=== PATIENT | female | born 1945 | race Caucasian/White ===

== ENCOUNTER → 2016-11-07 | Outpatient (CLI) | payer MEDICARE, BC ==
--- NOTE | 2016-11-07 18:03 | REP ---
MRI BRAIN WITHOUT AND WITH CONTRAST: HISTORY: Headaches. Areas of increased signal intensity on T2 weighted images are present in the periventricular and subcortical white matter. This represents small vessel ischemic disease. There is no intraparenchymal hemorrhage, infarct mass or midline shift. There is no abnormal enhancement. The ventricular system and cortical sulci are dilated consistent with mild volume loss. There is no extracerebral collection. The sinuses are clear. IMPRESSION: 1. Small vessel ischemic disease. 2. Mild volume loss. Signed by Rupert Saenz MD 11/07/2016 06:11 P
== END ==
LOC: M RAD 16:34
PROVIDERS: ATTEND Internal Medicine
DX: R51 Headache (principal); Z85.43 Personal history of malignant neoplasm of ovary; Z85.51 Personal history of malignant neoplasm of bladder
CPT/HCPCS: 70553; A9576

== ENCOUNTER → 2016-12-02 | Outpatient (REF) | payer MEDICARE, BC | LOC: M LAB REF 15:04 | PROVIDERS: ATTEND Internal Medicine | DX: C56.9 Malignant neoplasm of unspecified ovary (principal) ==

== ENCOUNTER → 2016-12-05 | Outpatient (CLI) | payer MEDICARE, BC ==
[~2016-12-05] MED LIST: ISOVUE-370 76% 100ML VIAL (Q9967) As Ordered ONE
--- NOTE | 2016-12-05 12:51 | REP ---
CT study of the chest with IV contrast: History: Ovarian cancer. Comparison to prior studies. The most recent comparison prior CT study is dated June 09, 2016. The most remote study is reviewed from June 06, 2014. These studies have shown waxing and waning pulmonary nodules in the left lower lobe and left upper lobe. CT contrast dose: 75 ml of Isovue [address] findings: On today's examination, there is a 6 mm spiculated noncalcified pulmonary nodule in the anterior segment of the left upper lobe on image number 45 of 102 in series 201 of today's examination. This appears a little larger than on the most recent prior study of June 2016. This nodule was a little smaller than on January 06, 2016. There is also a nodular opacity in the left lower lobe at the base somewhat anteriorly, which is seen on image numbers 56 through 59 of 102 in series 201 of today's exam. This nodular opacity has develop some calcification and has regressed. It appears improved. There is a stable, 6 mm noncalcified nodule in the left lower lobe adjacent to the hilar vessels centrally on image number 45 of 102 of today's examination. This has not changed. There is a tiny 3 mm pleural-based nodular opacity in the left upper lobe today. No hilar or mediastinal mass or adenopathy is observed. There is a small sliding-type hiatal hernia. No adrenal lesion is seen. A 6 mm hypodensity is seen in the right lobe of the liver, which is unchanged from June 2014. Also again noted is a small subpectoral right anterior chest wall lipoma measuring 3.7 cm in greatest diameter. This too is unchanged. Impression: Waxing and waning pulmonary nodules. On today's examination, there is enlargement in the spiculated nodule in the left upper lobe, now 6 mm in diameter. There is a nodule in the left lower lobe, which has regressed since the prior study and another in the left lower lobe, which is unchanged over multiple prior exams. Signed by Dinesh Ovalle MD 12/05/2016 02:31 P
== END ==
LOC: M RAD 10:32
PROVIDERS: ATTEND Internal Medicine Medical Oncology
DX: C56.9 Malignant neoplasm of unspecified ovary (principal)
CPT/HCPCS: 71260; Q9967

== ENCOUNTER → 2017-01-27 | Outpatient (REF) | payer MEDICARE, BC | LOC: M LAB REF 13:20 | PROVIDERS: ATTEND Internal Medicine | DX: I48.2 Chronic atrial fibrillation (principal) ==

== ENCOUNTER → 2017-05-31 | Outpatient (REF) | payer MEDICARE, BC | LOC: M LAB REF 13:55 | PROVIDERS: ATTEND Internal Medicine | DX: C56.9 Malignant neoplasm of unspecified ovary (principal) ==

== ENCOUNTER → 2017-06-07 | Outpatient (CLI) | payer MEDICARE, BC ==
[~2017-06-07] MED LIST changes: +GASTROGRAFIN SOLUTION 30ML (Q9963) As Ordered ONE
--- NOTE | 2017-06-07 11:56 | REP ---
Clinical: Ovarian cancer for follow up. Technique: Axial contrast enhanced images from the lung bases to the pubic symphysis using oral and 100 ml Isovue 370 intravenous contrast material with precontrast and delayed images of the abdomen as well as coronal and sagittal re-formations. Comparison: 06/06/2014, 01/06/2016. Findings: Lung bases are relatively well aerated and clear. Visualized portions of the heart and pericardium are stable and grossly within normal limits. Liver, spleen, pancreas, bilateral adrenal glands and kidneys are normal. The patient is status post cholecystectomy. The enteric system is without obstruction or acute inflammatory process. Colonic and sigmoid diverticulosis noted without evidence for acute diverticulitis. Areas of partial resection and anastomoses are identified in the right lower quadrant and mid pelvis. Area of anastomosis in the mid pelvis appears less distended than on prior examinations but includes central areas of low density as well as subtle high-density and possible calcified material which may reflect chronic retained intraluminal contents and less likely reflect abnormal mass (images 105 - 120). Pelvis demonstrates normal bladder and evidence for prior hysterectomy. No ascites. No intraperitoneal or retroperitoneal adenopathy. No focal mass lesion. Atherosclerotic changes of the aorta and vasculature noted without aneurysm or dissection. Musculoskeletal structures demonstrate age-related degenerative changes without focal osseous abnormality. Impression: 1. No obvious significant abdominopelvic pathology appreciated. Specifically, no ascites, adenopathy or definite mass lesion. 2. Area of small bowel anastomoses in the mid pelvis is less distended than prior examinations but contains central low density and presumed calcified structures which may reflect chronic residual intraluminal contents and less likely reflect true mass lesion. Follow-up examination using water as negative contrast agent or small bowel follow-through may be of value for further investigation. 3. Chronic stable changes include diverticulosis without acute diverticulitis, atherosclerotic changes to the vasculature, and degenerative changes the musculoskeletal structures. Signed by Jamey Solis MD 06/07/2017 11:47 A
--- NOTE | 2017-06-07 13:18 | REP ---
CT CHEST WITH IV CONTRAST: HISTORY: Ovarian carcinoma. Question metastatic disease or recurrence. Comparison chest CT study December 05, 2016. CT CONTRAST DOSE: 100 mL of Isovue [address] FINDINGS: There is no change in the size or appearance of the 6 mm left perihilar nodule in the left lower lobe. This seen on image number 41 of 100 in series 3 of 4 of today's examination. There is a somewhat spiculated irregular nodule 5 mm in diameter on the current study in the left upper lobe on page 43 of 100 of today's examination. This appears slightly smaller. It has not progressed. A tiny partially calcified nodular density is seen in the left lower lobe on page 54 unchanged. No other pulmonary nodule is visible today. The previously noted left upper lobe subpleural nodule is not apparent today. Scattered normal-sized mediastinal lymph nodes are seen stable since the prior study. No vascular abnormality is seen. A hiatal hernia is again noted. There is a small lipoma under the distal edge of the right pectoralis muscle unchanged. No pleural effusion is seen. Vascular calcification is again noted including the coronary artery distribution. No bony destructive lesion is appreciated. IMPRESSION: 1. Small hiatal hernia. 2. Stable normal-sized mediastinal lymph nodes. 3. Stable small left lung pulmonary nodules. No new pulmonary nodules seen. Signed by Dinesh Ovalle MD 06/07/2017 06:33 P
== END ==
LOC: M RAD 09:06
PROVIDERS: ATTEND Internal Medicine Medical Oncology
DX: Z08 Encounter for follow-up examination after completed treatment for malignant neoplasm (principal); K57.30 Diverticulosis of large intestine without perforation or abscess without bleeding; M19.90 Unspecified osteoarthritis, unspecified site; Z85.43 Personal history of malignant neoplasm of ovary
CPT/HCPCS: 71260; 74178; Q9963; Q9967

== ENCOUNTER → 2017-12-14 | Outpatient (REF) | payer MEDICARE, BC ==
[2017-12-15 11:14] LABS: CA 125 5.3 U/ML (<30.2)
== END ==
LOC: M LAB REF 14:56
DX: C56.9 Malignant neoplasm of unspecified ovary (principal)
CPT/HCPCS: 86304

== ENCOUNTER → 2018-06-07 | Outpatient (REF) | payer MEDICARE, BC | LOC: M LAB REF 17:22 | DX: C56.9 Malignant neoplasm of unspecified ovary (principal) | CPT/HCPCS: 86304 ==

== ENCOUNTER → 2018-06-11 | Outpatient (CLI) | payer MEDICARE, BC ==
[~2018-06-11] MED LIST changes: -GASTROGRAFIN SOLUTION 30ML (Q9963) As Ordered ONE; +ISOVUE-370 76% 100ML VIAL (Q9967) As Ordered; -ISOVUE-370 76% 100ML VIAL (Q9967) As Ordered ONE
== END ==
LOC: M RAD 09:33
DX: R91.1 Solitary pulmonary nodule (principal); Z87.891 Personal history of nicotine dependence

== ENCOUNTER → 2018-06-18 | Outpatient (CLI) | payer MEDICARE, BC | LOC: M RAD 07:59 | DX: R91.1 Solitary pulmonary nodule (principal); Z87.891 Personal history of nicotine dependence; K76.89 Other specified diseases of liver | CPT/HCPCS: Q9967 ==

== ENCOUNTER → 2018-07-19 | Outpatient (CLI) | payer MEDICARE, BC ==
[~2018-07-19] MED LIST changes: +GASTROGRAFIN SOLUTION 30ML (Q9963) As Ordered
== END ==
LOC: M RAD 11:30
DX: C56.9 Malignant neoplasm of unspecified ovary (principal); C78.00 Secondary malignant neoplasm of unspecified lung
CPT/HCPCS: Q9963

== ENCOUNTER → 2018-07-24 | Outpatient (CLI) | payer MEDICARE, BC | LOC: M PLARAD 11:23 | DX: C56.1 Malignant neoplasm of right ovary (principal); C78.02 Secondary malignant neoplasm of left lung | CPT/HCPCS: 78815 ==

== ENCOUNTER → 2018-08-13 | Outpatient (CLI) | payer MEDICARE, BC ==
[~2018-08-13] MED LIST changes: -GASTROGRAFIN SOLUTION 30ML (Q9963) As Ordered; -ISOVUE-370 76% 100ML VIAL (Q9967) As Ordered; +PROHANCE 279.3MG/ML 15ML VIAL (A9576) As Ordered
== END ==
LOC: M RAD 13:31
DX: R90.82 White matter disease, unspecified (principal); Z85.43 Personal history of malignant neoplasm of ovary
CPT/HCPCS: A9576

== ENCOUNTER → 2018-08-21 | Outpatient (REF) | payer MEDICARE, BC | LOC: M LAB REF 17:17 | DX: N76.0 Acute vaginitis (principal) | CPT/HCPCS: 87205 ==

== ENCOUNTER → 2018-11-22 | Outpatient (REF) | payer MEDICARE, BC ==
[~2018-11-22] MED LIST changes: +ATEN50TA2 PO; +CALC600T31 PO; +CALC750T PO; +CENTCHW3 PO; +CITRTAB19 PO; +ELIQ5TAB PO; +GLIP-163 PO; +LISI-538 PO; +MAGN250T7 PO; +MAGO400T PO; +METF10004 PO; +PROBCAP14 PO; -PROHANCE 279.3MG/ML 15ML VIAL (A9576) As Ordered; +RANI1SYP PO; +SIMV20TA2 PO; +SPIR-10 PO; +VITA500T3 PO
== END ==
LOC: M LAB REF 11:56
PROVIDERS: ATTEND Nurse Practitioner Family
DX: J02.9 Acute pharyngitis, unspecified (principal)

== ENCOUNTER → 2018-11-23 | Outpatient (REF) | payer MEDICARE, BC | LOC: M LAB REF 09:58 | PROVIDERS: ATTEND Nurse Practitioner Adult Health | DX: D48.5 Neoplasm of uncertain behavior of skin (principal) ==

== ENCOUNTER → 2018-12-18 | Outpatient (REF) | payer MEDICARE, BC ==
[2018-12-18 19:20] LABS: C REACTIVE PROTEIN QUANTITATIV < 0.30 MG/DL (0.00-0.30); RHEUMATOID FACTOR QUANT < 10.0 IU/ML (<15.0)
[2018-12-20 14:12] LABS: ANTINUCLEAR ANTIBODIES DIRECT Negative (Negative)
[2018-12-21 00:08] LABS: CYCLIC CITRULLINATED PEPTIDE 4 units (0-19)
== END ==
LOC: M LAB REF 17:39
PROVIDERS: ATTEND Internal Medicine
DX: M25.50 Pain in unspecified joint (principal); M79.10 Myalgia, unspecified site

== ENCOUNTER 2019-02-22 11:25 | Inpatient (IN) | payer MEDICARE, BC ==
[~2019-02-22] VITALS: Ht 154.9 cm; Wt 73.0 kg
[2019-02-22 05:30] VITALS: BP 136/88
[2019-02-22] MEDS ORDERED: L-LY500T9 PO (12:06)
[2019-02-22] MEDS ORDERED: FOLTTAB9 PO (12:06)
[2019-02-22] MEDS ORDERED: OXYC15TA76 PO ×2 (12:06)
[2019-02-22] MEDS ORDERED: META28.32 PO (12:06)
[2019-02-22] MEDS ORDERED: NS 1,000 ML IV SCH ×3 (12:15→17:30)
[2019-02-22 13:03] LABS: BASO # 0.1 10^3/uL (0.0-0.2); BASO % 0.4 % (0.0-1.0); EOS % 0.2 % (0.0-3.0); HEMATOCRIT 39.8 % (36.0-47.0); HEMOGLOBIN 13.6 g/dl (12.0-15.5); LYMPH # 1.7 10^3/uL (1.5-4.5); LYMPH % 12.6 % (24.0-44.0); MEAN CORPUSCULAR HEMOGLOBIN 28.9 pg (27.0-33.0); MEAN CORPUSCULAR HGB CONC 34.2 g/dl (32.0-36.5); MEAN CORPUSCULAR VOLUME 84.5 fl (80.0-96.0); MONO # 1.3 10^3/uL (0.0-0.8); MONO % 9.6 % (0.0-5.0); NEUTROPHILS # 10.3 10^3/uL (1.8-7.7); NEUTROPHILS % 76.5 % (36.0-66.0); PLATELET COUNT, AUTOMATED 500 10^3/uL (150-450); RED BLOOD COUNT 4.71 10^6/uL (4.00-5.40); WHITE BLOOD COUNT 13.4 10^3/uL (4.0-10.0)
[2019-02-22 13:13] LABS: INR 1.59; PROTHROMBIN TIME 19.2 SECONDS (12.1-14.4)
[2019-02-22 13:14] LABS: PARTIAL THROMBOPLASTIN TIME 35.6 SECONDS (25.4-37.6)
[2019-02-22 13:24] LABS: BLOOD UREA NITROGEN 8 MG/DL (7-18); CALCIUM LEVEL 10.6 MG/DL (8.8-10.2); CARBON DIOXIDE LEVEL 30 MEQ/L (21-32); CHLORIDE LEVEL 90 MEQ/L (98-107); CREATININE FOR GFR 0.69 MG/DL (0.55-1.30); GLOMERULAR FILTRATION RATE > 60.0 (>39); GLUCOSE, FASTING 176 MG/DL (70-100); MAGNESIUM LEVEL 1.7 MG/DL (1.8-2.4); POTASSIUM SERUM 4.8 MEQ/L (3.5-5.1); SODIUM LEVEL 127 MEQ/L (136-145)
[2019-02-22 13:29] LABS: CPK CREATINE PHOSPHOKINASE 28 U/L (26-192); MB/CK RELATIVE INDEX 5.36 (< OR =4)
[2019-02-22] MEDS ORDERED: ISOVUE-370 76% 100ML VIAL (Q9967) As Ordered ONE (13:30)
[2019-02-22 13:34] LABS: FREE T4 1.39 NG/DL (0.76-1.46); THYROID STIMULATING HORMONE 4.14 uIU/ML (0.358-3.740)
[2019-02-22 13:52] LABS: TROPONIN I < 0.02 NG/ML (< 0.10)
[2019-02-22 14:21] LABS: CREATININE,RANDOM URINE 27.1 MG/DL
[2019-02-22] MEDS ORDERED: MAG SULF 1GM/100ML (MAG RUN) 1 GM in APPROPRIATE DILUENT 1 EA IV ONE (14:45)
[2019-02-22] MEDS ORDERED: RANI150T14 PO (15:11)
[2019-02-22] MEDS ORDERED: OXYC-403 PO (15:11)
[2019-02-22] MEDS ORDERED: ROSU5TAB4 PO (15:11)
[2019-02-22] MEDS ORDERED: CITRTAB10 PO (15:11)
[2019-02-22] MEDS ORDERED: OXYC-517 PO (15:11)
[2019-02-22] MEDS ORDERED: ACET-683 PO (15:11)
[2019-02-22] MEDS ORDERED: VITA100014 PO (15:11)
[2019-02-22] MEDS ORDERED: CENT1TAB PO (15:11)
[2019-02-22] MEDS ORDERED: ACETAMINOPHEN TAB 650MG DOSE (2X325MG) PO PRN (15:30)
[2019-02-22] MEDS ORDERED: MOM 30ML SUSPENSION UDC PO PRN (15:30)
[2019-02-22] MEDS ORDERED: AQUAPHOR **100GM** OINT TOP SCH (15:45)
[2019-02-22] MEDS ORDERED: GLUCAGON FOR INJ 1 MG VIAL (J1610) SC PRN (15:45)
[2019-02-22] MEDS ORDERED: GLUCOSE 4 GM CHEW TABLET PO PRN (15:45)
[2019-02-22] MEDS ORDERED: DEXTROSE 50% 50 ML SYRINGE IV PRN (15:45)
--- NOTE | 2019-02-22 15:56 | HPEPDOC ---
General Date of Admission February 22, 2019 at 15:09 Date of Service: February 22, 2019 Chief Complaint The patient is a 73-year-old female who was sent to the ER for hyponatremia Source: Patient Exam Limitations: Clinical conditions (Pt mood vs clinical condition), Other Severity: Mild, Moderate History of Present Illness Pt is a 73 yo female with PMH of ovarian cancer s/p chemo in 2010, melanoma in back s/p resection in 2011, adenocarcinoma of lung diagnosed in Sep 2018 s/p resection on chemo now, A. fib on eliquis, HTN, and DM presented to [facility] ER after her primary care told her yesterday that she has hyponatremia of 121. She is on chemotherapy for her adenocarcinoma and reported last blood work was done a week or two ago. Limited info was able to be obtained; pt seems frustrated that she was recently told as outpatient her lung malignancy metastasize to the liver and possibly other organs in the abdomen on her CT scan. She reported no electrolyte abnormalities that she was aware of prior. Denies any symptoms except for LUQ abdominal pain that started Nov 2018 which she now describes to be 10/10 intermittent excruciating pain with no aggravating factor with alleviating factor as pain medications. Denies any fever, chills, nausea, vomiting, or bone pain. Patient has absolutely refused imaging of her abdomen. She did report that she has baseline SOB and wheezing since the left lower lobe lung resection but it is no different than baseline. She is on the second round of chemo treatment after her lung resection. It was noted that pt was on Lisinopril and Spironolactone which were d/c yesterday. She is on Calcitral- VitD3 200-250mg outpatient. Pt used to work as indoors as an IT worker; denies any environmental exposures she knows of such as asbestos or silicosis Home Medications Scheduled Apixaban (Eliquis) 5 Mg Tab, 5 MG PO BID, (Reported) Atenolol (Atenolol) 50 Mg Tab, 50 MG PO BID, (Reported) Calcium Citrate/Vitamin D3 (Citracal-Vit D3 200 mg-250 Tab) 1 Each Tablet, 1 TAB PO BID, (Reported) Cyanocobalamin (Vitamin B-12) (Vitamin B-12) 1,000 Mcg Tablet, 1,000 MCG PO BID, (Reported) Lysine HCl (l-Lysine) 500 Mg Tablet, 1 TAB PO DAILY, (Reported) Magnesium Oxide (Magnesium) 250 Mg Tab, 500 MG PO BID, (Reported) Metformin HCl (Metformin HCl) 1,000 Mg Tab, 1,000 MG PO BID, (Reported) Multivit-Min/FA/Lycopen/Lutein (Centrum Silver Tablet) 1 Each Tablet, 1 TAB PO DAILY, (Reported) Oxycodone HCl (Oxycodone HCl ER) 10 Mg Tab.er.12h, 10 MG PO BID, (Reported) Psyllium Husk (with Sugar) (Metamucil Powder) 575 Gm Powder, 1 PKT PO DAILY, (Reported) Ranitidine HCl (Ranitidine HCl) 150 Mg Tablet, 1 TAB PO BID, (Reported) Rosuvastatin Calcium (Rosuvastatin Calcium) 5 Mg Tablet, 5 MG PO QHS, (Reported) Scheduled PRN Acetaminophen (Acetaminophen) 500 Mg Tablet, 1,000 MG PO Q6H PRN for PAIN, (Reported) Oxycodone HCl (Oxycodone HCl) 5 Mg Tablet, 5 MG PO Q6H PRN for PAIN, (Reported) Allergies Coded Allergies: TAPE (Verified Allergy, Unknown, 11/30/05) Past Medical History Medical History Hypertension Appendicitis as a child Diabetes Mellitus type 2 Hyperlipidemia Ovarian Cancer s/p surgery 10/12/2010, chemotherapy 04/2011-07/11/2011 A. fib GERD Melanoma s/p resection 07/2012 Multiple abdominal hernias; denies inguinal hernias Surgical History Appendectomy Tonsillectomy Hernia repair 1988 Hernia repair and cholecystectomy 1989 Hernia Repair-Gotex Mesh 1991 Hernia repair-Gortex mesh removed; mylar mesh placed 1998 Hernia repair and colon resection, listed as 2 in.small intestine 1998 Complete hysterectomy and oophorectomy, large bowel resection 10/12/2010 Hernia repair and panniculectomy(Anita) 10/05/2012 Family History Father had metastatic cancer, sh thinks pprimary site is bone Mother had bladder and kidney caner, metastatic 1 Brother [place] 1 Brother [place] All kids are healthy Social History * Smoker: former Smoker (Quit in 1979) Alcohol: Denies Drugs: denies A-FIB/CHADSVASC A-FIB History Current/History of A-Fib/PAF?: Yes Current PO Anticoag Therapy: Yes (Eliquis) Review of Systems Constitutional: Reports: Other (PT denies any symptoms other than abdominal pain as well as baseline dyspnea and baseline intermittent wheezing); Denies: Chills, Fever ENT: Denies: Head Aches Pulmonary: Reports: Dyspnea (baseline); Denies: Cough, Pleuritic Chest Pain Cardiovascular: Denies: Chest Pain, Palpitations Gastrointestinal: Reports: Abdominal Pain (LUQ), Constipation; Denies: Nausea, Vomiting, Diarrhea, Melena, Hematochezia Physical Examination General Exam: Positive: Alert, Cooperative, No Acute Distress, Mild Distress Eye Exam: Positive: Conjunctiva & lids normal; Negative: Sclera icteric ENT Exam: Positive: Mucous membr. moist/pink, Other ENT (about 1X1cm healing ulcers with no signs of infection/inflammation/bleeding) Neck Exam: Positive: Supple Chest Exam: Positive: Normal air movement, Diminished (Decreased in left lower lobe region, otherwise CTA b/l); Negative: Rales, Rhonchi, Wheezing Heart Exam: Positive: Tachycardic (Mild), Irregular Rhythm Telemetry: Positive: Atrial fibrillation, Tachycardia (mild, 90s to low 100s) Abdomen Exam: Positive: Normal bowel sounds, Soft; Negative: Tenderness Extremity Exam: Positive: Normal pulses, Other (Unable to assess capillary refill as pt has nail slovenian on); Negative: Edema, Swelling Skin Exam: Positive: Other skin issue (Skin appears to be mildly dry on b/l upper and lower extremities) Neuro Exam: Positive: Normal Speech (Some circumferential speech and tangential speech), Normal Tone Psych Exam: Positive: Anxiety, Memory Intact, Oriented x 3 Vital Signs Vital Signs Date Time Temp Pulse Resp B/P (MAP) Pulse Ox O2 Delivery O2 Flow Rate FiO2 02/22/19 12:40 113 18 94 Room Air 02/22/19 12:31 119/73 (88) 02/22/19 12:00 97.7 Laboratory Data Labs 24H Laboratory Tests 2 02/22/19 12:33: Prothrombin Time 19.2H, Prothromb Time International Ratio 1.59, Activated Partial Thromboplast Time 35.6, Anion Gap 7L, Glomerular Filtration Rate > 60.0, Osmolality 274L, Blood Urea Nitrogen 8, Creatinine 0.69, Sodium Level 127L, Potassium Level 4.8, Chloride Level 90L, Carbon Dioxide Level 30, Calcium Level 10.6H, Magnesium Level 1.7L, Ammonia 17, Total Creatine Kinase 28, Creatine Kinase MB 2.0, Creatine Kinase MB Relative Index 5.36H, Troponin I < 0.02, Thyroid Stimulating Hormone (TSH) 4.140H, Free Thyroxine 1.39 02/22/19 12:34: Immature Granulocyte % (Auto) 0.7, White Blood Count 13.4H, Red Blood Count 4.71, Hemoglobin 13.6, Hematocrit 39.8, Mean Corpuscular Volume 84.5, Mean Corpuscular Hemoglobin 28.9, Mean Corpuscular Hemoglobin Concent 34.2, Red Cell Distribution Width 13.0, Platelet Count 500H, Neutrophils (%) (Auto) 76.5H, Lymphocytes (%) (Auto) 12.6L, Monocytes (%) (Auto) 9.6H, Eosinophils (%) (Auto) 0.2, Basophils (%) (Auto) 0.4, Neutrophils # (Auto) 10.3H, Lymphocytes # (Auto) 1.7, Monocytes # (Auto) 1.3H, Eosinophils # (Auto) 0.0, Basophils # (Auto) 0.1, Nucleated Red Blood Cells % (auto) 0.0 02/22/19 13:16: Urine Random Osmolality 177L, Urine Random Creatinine 27.1, Urine Random Sodium 36 CBC/BMP Laboratory Tests 02/22/19 12:33 Calcium Level 10.6 H 02/22/19 12:34 Red Blood Count 4.71, Mean Corpuscular Volume 84.5, Mean Corpuscular Hemoglobin 28.9, Mean Corpuscular Hemoglobin Concent 34.2, Red Cell Distribution Width 13.0, Neutrophils (%) (Auto) 76.5 H, Lymphocytes (%) (Auto) 12.6 L, Monocytes (%) (Auto) 9.6 H, Eosinophils (%) (Auto) 0.2, Basophils (%) (Auto) 0.4, Neutrophils # (Auto) 10.3 H, Lymphocytes # (Auto) 1.7, Monocytes # (Auto) 1.3 H, Eosinophils # (Auto) 0.0, Basophils # (Auto) 0.1 Problems (1) Hyponatremia Status: Acute Problem Text: - Ddx include possibly SIADH from lung adenocarcinoma, possibly adrenal insufficiency, possibly diuretic use - Na 121 outpt; pt reported last blood work at least 1 week ago. Repeat in ER 127 - Patient received small amount of IV fluid hydration in ER before it was discontinued; repeat BMP shows improvement at 129 - Serum osmo low, urine osmo 177 with urine Na 26. - Pt on Lisinopril and Spironolactone until yesterday. Thyroid panel showed subclinical hypothyroidism. Random cortisol level pending - Will c/w very gentle IV fluid hydration at 60 cc / hour - Nephro consulted (2) Hypercalcemia Problem Text: - Mild hypercalcemia 10.6 likely d/t excess Ca intake vs increase PTH from adenocarcinoma vs bone malignancy - Albumin of 2.6: Corrected calcium of 11.5 - Repeat BMP and ionized Ca lvl pending - Pt on outpt calcium supplement - Vitamin D3&D4, PTH-rP, PTH, alk phos, and GGT pending - LUQ abdominal pain close to the bottom of rib cage; mental status grossly within normal range. 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 Oxy therapy ordered - Pt declined CT abdomen/pelvis in Er; declined CT chest in ER (5) S/P skin biopsy Problem Text: S/p right cheek skin biopsy last Monday -Pt is unsure the presumtive diagnosis and not aware of the pathology result -Site well healing with clean ulcers noted; no infl ammation/irritation/bleeding/drainage noted -apply Auaphor ointment QID PRN dryness/irritation (6) HTN (hypertension) Status: Chronic Problem Text: - Cont Atenolol and Crestor. BP grossly wnl - Outpt meds Spironolactone and Lisinopril d/c the day prior to admission. - Vital signs as scheduled (7) Chronic atrial fibrillation Status: Chronic Problem Text: - PMH of gregg rodriguez on Eliquis and atenolol - HR mildly tachy b/w 90s to low 100s; pt reported that is baseline - Cont Eliquis, atenolol, and Crestor - Tele monitoring (8) Diabetes mellitus type 2, noninsulin dependent Status: Chronic Problem Text: - Will start ISS -FSBS ACHS, SS, and hypoglycemia protocol (9) Chronic GERD Status: Chronic Problem Text: Cont home med Ranitidine (10) Hypomagnesemia Status: Acute Problem Text: - Mild, Mg at 1.7 - 1 Mg run ordered. Cont Mag Oxide; home dose 500mg converted to hospital formulary 400mg - F/u with Mg level Plan / VTE VTE Prophylaxis Ordered?: Yes (eliquis, TEDS, and SCD) GME ATTESTATION GME ATTESTATION My faculty preceptor for this patient encounter was physically present during the encounter and was fully available. All aspects of the patient interview, examination, medical decision making process, and medical care plan development were reviewed and approved by the faculty preceptor. The faculty preceptor is aware and concurs with the plan as stated in the body of this note and will attest to such by his/her cosignature. ATTENDING NOTE I, Kristi Fernandez, have both independently examined this patient as well as reviewed the documentation. I have discussed in detail with the resident the findings and plan of treatment as documented by the resident. I agree with their findings and treatment plan. I will continue to follow the patient and offer further guidance to the patients care as necessary during this hospital stay. GURJIT TOBIN DO February 22, 2019 15:56 KRISTI FERNANDEZ MD February 22, 2019 17:57
[2019-02-22] MEDS ORDERED: oxyCODONE 5MG TAB PO PRN (16:00)
[2019-02-22] MEDS ORDERED: PILL CUTTER 1 EACH XX PRN (16:15)
[2019-02-22 16:16] LABS: IONIZED CALCIUM 4.6 MG/DL (4.5-5.3)
[2019-02-22 16:42] LABS: ALBUMIN 2.9 GM/DL (3.2-5.2); BLOOD UREA NITROGEN 8 MG/DL (7-18); CALCIUM LEVEL 9.5 MG/DL (8.8-10.2); CARBON DIOXIDE LEVEL 27 MEQ/L (21-32); CHLORIDE LEVEL 95 MEQ/L (98-107); CREATININE FOR GFR 0.54 MG/DL (0.55-1.30); GAMMA GLUTAMYLTRANSPEPTIDASE 26 U/L (5-55); GLOMERULAR FILTRATION RATE > 60.0 (>39); GLUCOSE, FASTING 157 MG/DL (70-100); MAGNESIUM LEVEL 2.1 MG/DL (1.8-2.4); POTASSIUM SERUM 4.4 MEQ/L (3.5-5.1); SODIUM LEVEL 129 MEQ/L (136-145)
[2019-02-22 16:50] LABS: CORTISOL BASELINE 21.5 UG/DL (4.3-22.4); TOTAL 25(OH) VITAMIN D 37.6 NG/ML (30.0-100.0)
[2019-02-22 16:51] LABS: PTH INTACT 6.7 PG/ML (18.5-88.0)
[2019-02-22] MEDS: HumaLOG INSULIN (NovoLOG) PER UNIT SC SCH ×2 (17:30→20:59)
[2019-02-22] MEDS: oxyCODONE 5MG TAB PO PRN ×2 (17:48→22:27)
[2019-02-22] MEDS ORDERED: metFORMIN (GLUCOPHAGE) 1000 MG TABLET PO SCH (18:00)
[2019-02-22] MEDS: oxyCODONE 5MG TAB PO SCH (20:50)
[2019-02-22] MEDS: FAMOTIDINE 20 MG TAB PO SCH (20:51)
[2019-02-22] MEDS: ATENOLOL 50 MG TAB PO SCH (20:51)
[2019-02-22] MEDS: ROSUVASTATIN 10 MG TAB (CRESTOR) PO SCH (20:51)
[2019-02-22] MEDS: CYANOCOBALAMIN 500 MCG TAB PO SCH (20:51)
[2019-02-22] MEDS: APIXABAN 5 MG TAB (ELIQUIS) PO SCH (20:51)
[2019-02-22] MEDS: MAGNESIUM OXIDE 400 MG TAB (MAG-OX) PO SCH (20:51)
--- NOTE | 2019-02-22 20:57 | ECGEPIP ---
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
[2019-02-22] MEDS: AQUAPHOR **100GM** OINT TOP PRN (21:00)
[2019-02-22 21:42] LABS: BLOOD UREA NITROGEN 7 MG/DL (7-18); CARBON DIOXIDE LEVEL 29 MEQ/L (21-32); CHLORIDE LEVEL 94 MEQ/L (98-107); CREATININE FOR GFR 0.65 MG/DL (0.55-1.30); GLOMERULAR FILTRATION RATE > 60.0 (>39); GLUCOSE, FASTING 177 MG/DL (70-100); POTASSIUM SERUM 4.7 MEQ/L (3.5-5.1); SODIUM LEVEL 130 MEQ/L (136-145)
[2019-02-22 22:00] VITALS: BP 139/79
[2019-02-23] MEDS: oxyCODONE 5MG TAB PO PRN ×4 (02:34→21:59)
[2019-02-23 06:00] VITALS: BP 128/69
[2019-02-23 06:42] LABS: HEMATOCRIT 41.1 % (36.0-47.0); HEMOGLOBIN 13.8 g/dl (12.0-15.5); MEAN CORPUSCULAR HEMOGLOBIN 29.2 pg (27.0-33.0); MEAN CORPUSCULAR HGB CONC 33.6 g/dl (32.0-36.5); MEAN CORPUSCULAR VOLUME 86.9 fl (80.0-96.0); PLATELET COUNT, AUTOMATED 462 10^3/uL (150-450); RED BLOOD COUNT 4.73 10^6/uL (4.00-5.40); WHITE BLOOD COUNT 10.7 10^3/uL (4.0-10.0)
[2019-02-23 07:09] LABS: BLOOD UREA NITROGEN 7 MG/DL (7-18); CALCIUM LEVEL 9.1 MG/DL (8.8-10.2); CARBON DIOXIDE LEVEL 27 MEQ/L (21-32); CHLORIDE LEVEL 95 MEQ/L (98-107); CREATININE FOR GFR 0.56 MG/DL (0.55-1.30); GLOMERULAR FILTRATION RATE > 60.0 (>39); GLUCOSE, FASTING 133 MG/DL (70-100); MAGNESIUM LEVEL 1.8 MG/DL (1.8-2.4); POTASSIUM SERUM 4.3 MEQ/L (3.5-5.1); SODIUM LEVEL 129 MEQ/L (136-145)
[2019-02-23] MEDS: APIXABAN 5 MG TAB (ELIQUIS) PO SCH ×2 (08:43→21:02)
[2019-02-23] MEDS: MAGNESIUM OXIDE 400 MG TAB (MAG-OX) PO SCH ×2 (08:43→20:57)
[2019-02-23] MEDS: CYANOCOBALAMIN 500 MCG TAB PO SCH ×2 (08:43→20:57)
[2019-02-23] MEDS: METAMUCIL (PSYLLIUM) PACKET PO SCH (08:43)
[2019-02-23] MEDS: FAMOTIDINE 20 MG TAB PO SCH ×2 (08:44→20:57)
[2019-02-23] MEDS: MULTIVITAMINS/MINERALS THERAP 1 TAB PO SCH (08:44)
[2019-02-23] MEDS: HumaLOG INSULIN (NovoLOG) PER UNIT SC SCH ×4 (08:44→21:00)
[2019-02-23] MEDS: ATENOLOL 50 MG TAB PO SCH ×2 (08:46→21:02)
[2019-02-23] MEDS: oxyCODONE 5MG TAB PO SCH ×2 (08:46→21:03)
[2019-02-23] MEDS: AQUAPHOR **100GM** OINT TOP PRN ×2 (08:48→21:04)
[2019-02-23 14:00] VITALS: BP 131/79
--- NOTE | 2019-02-23 15:33 | IPNPDOC ---
Text Note Date of Service The patient was seen on 02/23/19. NOTE HPI: Pt is a 73 yo female with PMH of ovarian cancer s/p chemo in 2010, melanoma in back s/p resection in 2011, adenocarcinoma of lung diagnosed in Sep 2018 s/p res ection on chemo now, A. fib on eliquis, HTN, and DM presented to [facility] ER after her primary care told her yesterday that she has hyponatremia of 121. She is on chemotherapy for her adenocarcinoma and reported last blood work was done a week or two ago. Limited info was able to be obtained; pt seems f rustrated that she was recently told as outpatient her lung malignancy metastasize to the liver and possibly other organs in the abdomen on her CT scan. She reported no electrolyte abnormalities that she was aware of prior. Denies any symptoms except for LUQ abdominal pain that started Nov 2018 which she describes to be 10/10 intermittent excruciating pain at time of admission; with no aggravating factor with alleviating factor as pain medications. Denies any fever, chills, nausea, vomiting, or bone pain. Patient has absolutely refused imaging of her abdomen. She did report that she has baseline SOB and wheezing since the left lower lobe lung resection but it is no different than baseline. She is on the second round of chemo treatment after her lung resection. It was noted that pt was on Lisinopril and Spironolactone which were d/c yesterday. She is on Calcitral- VitD3 200-250mg outpatient. Pt used to work as indoors as an IT worker; denies any environmental exposures she knows of such as asbestos or silicosis Pt was examined at bedside today after she walked back from restroom with assist. She reported still having LUQ abdominal pain which may go to the back at times; denies any other symptoms including chest pain, palpitation, lightheadedness, or dizziness. She reported still having baseline SOB; denies wheezing or coughing Review of Systems Constitutional: Reports: Denies: Chills, Fever, lightheadedness, or dizziness ENT: Denies: Head Aches Pulmonary: Reports: Dyspnea that is baseline; Denies: Cough, Pleuritic Chest Pain Cardiovascular: Denies: Chest Pain or Palpitations Gastrointestinal: Reports: Abdominal Pain (LUQ); Denies: Nausea, Vomiting, or Diarrhea Physical Examination General Exam: Alert, Cooperative, No Acute Distress Eye Exam: Conjunctiva & lids normal. No sclera icteric ENT Exam: Mucous membrane moist/pink, about 1X1cm clean healing ulcers with no signs of infection/inflammation/bleeding Neck Exam: Supple Chest Exam: Normal air movement, Diminished (Decreased in left lower lobe region, otherwise CTA b/l). No rales, Rhonchi, Wheezing Heart Exam: Mildly tachycardic; Irregular Rhythm. No murmur Abdomen Exam: Normal bowel sounds in all 4 quadrants, Soft. No tenderness, guarding, or distention Extremity Exam: Normal b/l pulses, still unable to assess capillary refill as pt has nail kiswahili on); No edema or swelling in b/l lower extremities. No tenderness in b/l calves Neuro Exam: Positive: Normal Speech with cognitive function grossly intact Psych Exam: Positive: Memory Intact, Oriented x 3 Assessment and Plan: Hyponatremia - Ddx include possibly SIADH from lung adenocarcinoma, possibly adrenal insufficiency, possibly diuretic use - Na 121 outpt; pt reported last blood work at least 1 week ago. Repeat in ER 127 - Patient received small amount of IV fluid hydration in ER before it was discontinued; repeat BMP 02/22 shows improvement at 129 - Na this morning at 129 - Serum osmo low, urine osmo 177 with urine Na 26. - Pt on Lisinopril and Spironolactone until yesterday. Thyroid panel showed subclinical hypothyroidism. Random cortisol level wnl - Nephro consulted; recommended d/c IV NS. 1500ml fluid restriction Hypercalcemia, resolved - Initially presented w/ mild hypercalcemia 10.6 likely d/t excess Ca intake vs increase PTH from adenocarcinoma vs bone malignancy - Albumin of 2.9 today: Corrected calcium of 10 - Pt on outpt calcium supplement; d/c - Vitamin D3 wnl; D4 pending. PTH low, PTH-rP pending. Alk phos and GGT both wnl - LUQ abdominal pain close to the bottom of rib cage; mental status grossly within normal range. 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 Oxy therapy ordered - Pt declined CT abdomen/pelvis in Er; declined CT chest in ER S/P skin biopsy -S/p right cheek skin biopsy last Monday -Pt is unsure the presumptive diagnosis and not aware of the pathology result -Site well healing with clean ulcers noted; no inflammation/irritation/bleeding/drainage noted -apply Aquaphor ointment QID PRN dryness/irritation Hypertension - Cont Atenolol and Crestor. BP grossly wnl - Outpt meds Spironolactone and Lisinopril d/c the day prior to admission. - Vital signs as scheduled Chronic atrial fibrillation - PMH of a. fib on Eliquis and atenolol - HR mildly tachy b/w 90s to low 100s; pt reported that is baseline - Cont Eliquis, atenolol, and Crestor - Tele monitoring Diabetes mellitus type 2, noninsulin dependent -FSBS ACHS, insulin SS, and hypoglycemia protocol Chronic GERD -Cont home med Ranitidine Hypomagnesemia, resolved - initially mild hypomagnesia, Mg at 1.7. This morning Mg level 1.8 - 1 Mg run given 02/22. Cont Mag Oxide; home dose 500mg converted to hospital formulary 400mg - Cont to f/u with Mg level; january d/c if Mg level remains wnl tmrw DVT prophylaxis - on full anticoagulation with Eliquis VS,Fishbone, I+O VS, Fishbone, I+O Laboratory Tests 02/22/19 16:08 Calcium Level 9.5 02/22/19 21:14 Calcium Level 10.0 02/23/19 05:46 Calcium Level 9.1, Red Blood Count 4.73, Mean Corpuscular Volume 86.9, Mean Corpuscular Hemoglobin 29.2, Mean Corpuscular Hemoglobin Concent 33.6, Red Cell Distribution Width 13.1 Vital Signs Date Time Temp Pulse Resp B/P (MAP) Pulse Ox O2 Delivery O2 Flow Rate FiO2 02/23/19 14:00 96.8 101 14 131/79 (96) 93 02/22/19 17:00 Room Air I&O- Last 24 Hours up to 6 AM 02/23/19 06:00 Intake Total 1440 ml Output Total 600 ml Balance 840 ml GME ATTESTATION GME ATTESTATION My faculty preceptor for this patient encounter was physically present during the encounter and was fully available. All aspects of the patient interview, examination, medical decision making process, and medical care plan development were reviewed and approved by the faculty preceptor. The faculty preceptor is aware and concurs with the plan as stated in the body of this note and will attest to such by his/her cosignature. ATTENDING NOTE I, Kristi Fernandez, have both independently examined this patient as well as reviewed the documentation. I have discussed in detail with the resident the findings and plan of treatment as documented by the resident. I agree with their findings and treatment plan. I will continue to follow the patient and offer further guidance to the patients care as necessary during this hospital stay. GURJIT TOBIN DO February 23, 2019 15:33 KRISTI FERNANDEZ MD February 23, 2019 19:48
--- NOTE | 2019-02-23 17:02 | CR ---
DATE OF CONSULTATION: 02/23/2019 REQUESTING PHYSICIAN: Dr. Kristi Eng. CONSULTING PHYSICIAN: Dr. Loco. REASON FOR CONSULTATION: Management of hyponatremia. CHIEF COMPLAINT: Patient was sent to the emergency room for abnormal labs from the primary care provider (PCP) office> NOTE: History was obtained from medical team and from patient's chart. Patient herself is a very poor historian. HISTORY OF PRESENT ILLNESS: Trudi Hand is a 73-year-old female. Apparently, she has history of multiple cancers including ovarian cancer status post chemotherapy in 2010, history of melanoma status post resection in 2011, and now recently she has adenocarcinoma of the lung, which was diagnosed in September 2018. She is currently getting chemotherapy for the CA lung. She also has multiple other comorbidities, which are mentioned below. Patient reports that she was getting serial blood work done as outpatient because of the chemotherapy. She got basic metabolic panel done at PCP office about a week ago. She was found to have hyponatremia, so she was called by her primary care to report to the emergency room for further management of hyponatremia. When patient arrived in the emergency room, she was found to have a sodium of 127, and because of history of CA lung with reported metastasis to the liver and other organs and hyponatremia, patient was admitted under the hospitalist service overnight. She was started on intravenous (IV) fluid hydration with normal saline. Patient was also getting lisinopril and spironolactone as outpatient, which was stopped before the admission. Nephrology service was called for further help in the management of this patient. I saw and evaluated patient today morning at the bedside. Patient reports that she feels very thirsty all the time because she is short of breath after resection of the left lower lobe of lung. She is getting IV fluid hydration with normal saline; however, her sodium has been fluctuating between 129-130. Patient otherwise is afebrile, hemodynamically stable. PAST MEDICAL HISTORY: 1. Hypertension. 2. Diabetes mellitus type 2. 3. Hyperlipidemia. 4. History of CA ovaries. 5. History of melanoma. 6. History of adenocarcinoma of the lung. 7. Atrial fibrillation. 8. Gastroesophageal reflux disease. PAST SURGICAL HISTORY: 1. Status post appendectomy. 2. Status post tonsillectomy. 3. History of hernia repair in . 4. Mathis cystectomy in 1989. 5. Multiple other hernia repair surgeries in the past. 6. History of a hysterectomy and bilateral salpingo-oophorectomy. 7. Large bowel resection in 2011. 8. Status post left lower lobectomy. ALLERGIES: TAPE. FAMILY HISTORY: Father had metastatic cancer. Primary is not known. Mother had bladder, kidney cancers. SOCIAL HISTORY: Patient is a former smoker. She denies any illicit drug abuse or alcohol abuse. REVIEW OF SYSTEMS: GENERAL: Patient complains of feeling weak and tired EYES: She denies any blurry vision, double vision. ENT: She denies any dysphagia, odynophagia. She does report feeling thirsty all the time and dry mucous membranes. CARDIOVASCULAR: She denies any chest pain or palpitation. RESPIRATORY: She reports baseline shortness of breath after left lower lobe resection. GASTROINTESTINAL (GI): She reports history of decreased appetite. GENITOURINARY: She denies any dysuria or hematuria. MUSCULOSKELETAL: She denies any muscle aches and pains. CENTRAL NERVOUS SYSTEM (INFORMATION SECURITY): She denies any strokes or seizures. HEMATOLOGY/ONCOLOGY: She reports history of multiple malignancies as mentioned above; otherwise she denies any easy bleeding or bruising. ENDOCRINE: She reports history of diabetes mellitus type 2. SKIN: She denies any rashes or ulcers. All other review of systems is negative. PHYSICAL EXAMINATION: GENERAL: Patient is awake, alert, oriented times three, laying in bed in mild respiratory distress. VITAL SIGNS: Temperature is 97.9 degrees Fahrenheit, blood pressure 132/73, pulse is 92, respiratory rate of 20, saturating 93% on room air. HEAD AND NECK EXAM: Extraocular muscles intact. Pupils equally round and reactive to light. Mucous membranes are moist. Neck is supple. There is no jugular venous distention (JVD). CARDIOVASCULAR: S1,S2. Regular rate. No edema of the bilateral lower extremities. RESPIRATORY: Decreased breath sounds at the bases; otherwise no active rales or rhonchi. ABDOMEN: Soft, obese, positive bowel sounds. Old surgical scars were noted. MUSCULOSKELETAL: No clubbing or cyanosis. Pulses are 2+. CENTRAL NERVOUS SYSTEM (INFORMATION SECURITY): No focal deficit. Power is 5/5 in all extremities. SKIN: No rashes or ulcers. LABORATORY REVIEW: Complete blood count (CBC) showed a WBC 10.7, hemoglobin 13.8, platelets are 462. Urine random osmolality was 177 yesterday. Urine random creatinine was 27.1 and random sodium was 36. Basic metabolic panel (BMP) on arrival showed a sodium of 127. Her sodium today morning is 129, with a potassium of 4.3, chloride 95, bicarbonate 27, BUN 7, creatinine is 0.5, glucose 133, calcium is 9.1, magnesium 1.8. Parathyroid hormone (PTH) is 6.7. PTH reactive protein is pending. Cortisol is 21.5. Thyroid stimulating hormone (TSH) 4.13, Free T4 is 1.39, total T3 is pending. HOME MEDICATIONS: Patient's home medications included: - Eliquis 5 mg twice a day - atenolol 50 mg by mouth twice - Citracal tablets with vitamin D twice a day - vitamin B12 1000 mcg twice a day - metformin 1 gram by mouth twice a day - lysine one tablet by mouth daily - magnesium oxide 500 mg by mouth twice a day - multivitamin one tablet daily - oxycodone 10 mg by mouth twice a day - psyllium husk Metamucil one packet by mouth daily - ranitidine one tablet twice a day - rosuvastatin 5 mg at bedtime - She was also on lisinopril 20 mg by mouth daily, which was stopped before admission and spironolactone 12.5 mg by mouth daily which was stopped as well. CURRENT INPATIENT MEDICATIONS: Patient's inpatient medications include: - normal saline at 60 mL an hour - Tylenol as needed - Eliquis 5 mg by mouth twice a day - atenolol 50 mg by mouth twice a day - vitamin B12 1000 mcg by mouth twice a day - Pepcid 20 mg by mouth twice a day - insulin sliding scale - magnesium oxide 400 mg by mouth twice a day - Glucophage was stopped today morning. - She is she is on milk of magnesia as needed - multivitamin one tablet by mouth daily - oxycodone 5 mg every 4 hours as needed for pain - psyllium husks one packet by mouth daily - rosuvastatin 5 mg by mouth at bedtime ASSESSMENT: A 73-year-old female with history of diabetes mellitus type 2, hypertension, history of adenocarcinoma of the lung with metastasis to liver, admitted this time with hyponatremia. PLAN: 1. Hyponatremia. Patient has euvolemic hypotonic hyponatremia with a relatively high urine osmolality and urine sodium of 36. 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 Patient does not need any IV fluids. There are no signs of volume depletion. Patient actually needs fluid restriction. I have put her on 1500 mL of fluid restriction daily. If that does not help, then patient will be given a dose of tolvaptan tomorrow. No need of salt tablet at this time. SIADH is most likely related to adenocarcinoma of the lung with metastases. 2. Hypercalcemia. Patient had a calcium level of 10.6 on arrival. PTH level is adequately low. PTH related protein is pending. Patient already has a known diagnosis of metastatic adenocarcinoma; however, she was taking calcium supplements at home as well. Patient already got IV fluid hydration and calcium supplements are on hold. Calcium level has improved within the normal range. 3. Hypertension. Avoid use of lisinopril at this point. Blood pressure level is within the acceptable range. Continue current dose of atenolol if needed. Patient can be given calcium channel blockers. Spironolactone is also on hold. 4. Diabetes mellitus type 2. Patient is getting insulin sliding scale. She was also receiving metformin. It is okay to give metformin to this patient at this point, since acid base level is within the acceptable range and renal function is stable. 5. Elevated TSH. Patient has a normal free T4 level. She is sick with the metastatic cancer. I have ordered a total T3 level, which is pending. Essential diagnosis is possibly sick euthyroid syndrome or subclinical hypothyroidism. Thank you for involving me in the care of this patient. I shall be happy to follow the patient along with you tomorrow morning. MTDD
[2019-02-23 19:20] LABS: BLOOD UREA NITROGEN 7 MG/DL (7-18); CALCIUM LEVEL 9.9 MG/DL (8.8-10.2); CARBON DIOXIDE LEVEL 23 MEQ/L (21-32); CHLORIDE LEVEL 95 MEQ/L (98-107); CREATININE FOR GFR 0.71 MG/DL (0.55-1.30); GLOMERULAR FILTRATION RATE > 60.0 (>39); GLUCOSE, FASTING 133 MG/DL (70-100); MAGNESIUM LEVEL 1.5 MG/DL (1.8-2.4); POTASSIUM SERUM 4.9 MEQ/L (3.5-5.1); SODIUM LEVEL 128 MEQ/L (136-145)
[2019-02-23] MEDS: ROSUVASTATIN 10 MG TAB (CRESTOR) PO SCH (21:01)
[2019-02-23 22:00] VITALS: BP 140/82
[2019-02-23] MEDS ORDERED: METOPROLOL 5 MG/5 ML VIAL IV SCH (23:45)
[2019-02-24] VITALS (7 sets, daily range): BP systolic 111–133; BP diastolic 68–96
[2019-02-24] MEDS ORDERED: DIGOXIN INJ 0.5 MG/2 ML AMP (J1160) IV ONE (00:45)
[2019-02-24] MEDS ORDERED: MAG SULF 1GM/100ML (MAG RUN) 1 GM in APPROPRIATE DILUENT 1 EA IV ONE (01:30)
[2019-02-24] MEDS: oxyCODONE 5MG TAB PO PRN ×3 (01:36→17:26)
[2019-02-24 05:22] LABS: HEMATOCRIT 40.4 % (36.0-47.0); HEMOGLOBIN 13.5 g/dl (12.0-15.5); MEAN CORPUSCULAR HEMOGLOBIN 28.2 pg (27.0-33.0); MEAN CORPUSCULAR HGB CONC 33.4 g/dl (32.0-36.5); MEAN CORPUSCULAR VOLUME 84.5 fl (80.0-96.0); PLATELET COUNT, AUTOMATED 465 10^3/uL (150-450); RED BLOOD COUNT 4.78 10^6/uL (4.00-5.40)
[2019-02-24 05:50] LABS: BLOOD UREA NITROGEN 6 MG/DL (7-18); CALCIUM LEVEL 9.5 MG/DL (8.8-10.2); CARBON DIOXIDE LEVEL 25 MEQ/L (21-32); CHLORIDE LEVEL 95 MEQ/L (98-107); CREATININE FOR GFR 0.53 MG/DL (0.55-1.30); GLOMERULAR FILTRATION RATE > 60.0 (>39); GLUCOSE, FASTING 130 MG/DL (70-100); POTASSIUM SERUM 4.1 MEQ/L (3.5-5.1); SODIUM LEVEL 128 MEQ/L (136-145)
[2019-02-24 06:52] LABS: MAGNESIUM LEVEL 1.9 MG/DL (1.8-2.4)
[2019-02-24] MEDS: HumaLOG INSULIN (NovoLOG) PER UNIT SC SCH ×4 (08:42→20:19)
[2019-02-24] MEDS: APIXABAN 5 MG TAB (ELIQUIS) PO SCH ×2 (08:42→20:16)
[2019-02-24] MEDS: METAMUCIL (PSYLLIUM) PACKET PO SCH (08:42)
[2019-02-24] MEDS: CYANOCOBALAMIN 500 MCG TAB PO SCH ×2 (08:42→20:11)
[2019-02-24] MEDS: FAMOTIDINE 20 MG TAB PO SCH ×2 (08:42→20:19)
[2019-02-24] MEDS: MULTIVITAMINS/MINERALS THERAP 1 TAB PO SCH (08:42)
[2019-02-24] MEDS: MAGNESIUM OXIDE 400 MG TAB (MAG-OX) PO SCH ×2 (08:43→20:12)
[2019-02-24] MEDS: ATENOLOL 50 MG TAB PO SCH ×2 (08:43→20:16)
[2019-02-24] MEDS: oxyCODONE 5MG TAB PO SCH (08:44)
--- NOTE | 2019-02-24 10:17 | IPNPDOC ---
Text Note Date of Service The patient was seen on 02/24/19. NOTE Subjective: Pt is a 73 yo female with PMH of . fib (on Eliquis), HTN, and DM2, Ovarian cancer s/p chemo in 2010, Melanoma of her back s/p resection in 2011, Adenoc arcinoma of lung (Dx 09/2018 s/p resection, on chemo now) who presented to the ER after her primary care told her yesterday that she has hyponatremia of 121. Patient has been on Keytruda for chemotherapy recently. . She was admitted to the hospitalist service for hyponatremia. Nephrology was called on consultation. Patient was seen and examined at the bedside. Patient reports that overnight she went into A. fib with RVR and was transferred to the telemetry floor where she could receive IV digoxin. Patient reported some palpitations at the time. . Currently, she hasn't A. fib but rate controlled. She denies nausea, vomiting, chest pain, shortness of breath, palpitations. She has abdominal pain is doing significantly better. Denies any constipation, diarrhea, or urinary discomfort. Objective: Vitals (See below) General: Lying in bed, no acute distress, comfortable, AAOx3 HEENT: NC, AT CVS: +S1S2 Lungs: Fair air entry b/l, no auscultated rhonchi, rales or wheezing Abdomen: Soft, ND, NT Extremities: - Edema, - Calf tenderness Assessment and plan: Hyponatremia - 2/2 hypotonic euvolemic etiology - likely 2/2 SIADH from Lung Adenocarcinoma - Sodium has remained relatively unchanged from yesterday - s/p IV fluid hydration - Has been placed of fluid restriction of 1500 cc by Nephrology - Nephrology on consultation; possibly will consider starting NaCl tablets today s/p Hypercalcemia - Possibly 2/2 calcium supplementation, possibly 2/2 adenocarcinoma - Corrected calcium of 10.4 - PTHrP pending - s/p Calcium supplementation Abdominal pain - Patient reports that she has experienced intermittent abdominal pain since 11/2018 - Has had several imaging modalities completed; included a PET scan recently which she reported as diffuse metastatic cancer - Patient has reported that pain medications help alleviate her pain - She has absolutely refused imaging of her abdomen; I have stressed to her the importance of imaging; she understands risks / benefits - still refuses imaging - Will c/w pain control; will re-advise on imaging if abdominal pain fails to improve - Pt declined CT abdomen/pelvis in Er; declined CT chest in ER Metastatic Adenocarcinoma of Left Lung - Diagnosed Sep 2018; s/p left lower lobe resection - PET Scan 07/2018 - Patient has been on chemotherapy with Keytruda as an outpatient - As per patient a recent PET scan was complete and she was advised that she had metastasis to her liver - Patient follows with Dr. Marianne Alcantar as an outpatient s/p Skin Biopsy on 02/11/19 - Is awaiting pathology results - Physical without signs of infection - c/w Aquaphor ointment HTN - BP appears well controlled - c/w Atenolol Atrial fibrillation; s/p A. fib with RVR - In the late night of of 02/23/2019 , patient went into A. fib with RVR - She was transferred to telemetry floor where she could receive IV digoxin - She has since been rate controlled - c/w Atenolol for rate control - c/w full anticoagulation with Eliquis NIDDM2 - c/w ISS while inpatient s/p Hypomagnesemia GERD - c/w Ranitidine DVT prophylaxis - on full anticoagulation with Eliquis Prognosis: - Guarded Code Status: - DNR / DNI Disposition: - Anticipate discharge within 24-48 hours VS,Rodriguez, I+O VS, Rodriguez, I+O Laboratory Tests 02/23/19 18:38 Calcium Level 9.9 02/24/19 04:50 Calcium Level 9.5, Red Blood Count 4.78, Mean Corpuscular Volume 84.5, Mean Corpuscular Hemoglobin 28.2, Mean Corpuscular Hemoglobin Concent 33.4, Red Cell Distribution Width 13.0 Vital Signs Date Time Temp Pulse Resp B/P (MAP) Pulse Ox O2 Delivery O2 Flow Rate FiO2 02/24/19 09:14 18 02/24/19 08:43 88 121/69 02/24/19 04:00 2.0 02/24/19 04:00 97.5 90 02/22/19 17:00 Room Air I&O- Last 24 Hours up to 6 AM 02/24/19 06:00 Intake Total 2040 ml Output Total 1880 ml Balance 160 ml BUDDY FERNANDEZ MD February 24, 2019 10:17
[2019-02-24] MEDS ORDERED: TOLVAPTAN 15 MG TAB (SAMSCA) PO ONE (13:30)
[2019-02-24 18:19] LABS: ALBUMIN 3.3 GM/DL (3.2-5.2); BLOOD UREA NITROGEN 7 MG/DL (7-18); CALCIUM LEVEL 9.8 MG/DL (8.8-10.2); CARBON DIOXIDE LEVEL 26 MEQ/L (21-32); CHLORIDE LEVEL 93 MEQ/L (98-107); CREATININE FOR GFR 0.62 MG/DL (0.55-1.30); GLOMERULAR FILTRATION RATE > 60.0 (>39); GLUCOSE, FASTING 145 MG/DL (70-100); PHOSPHORUS LEVEL 3.8 MG/DL (2.5-4.9); POTASSIUM SERUM 4.6 MEQ/L (3.5-5.1); SODIUM LEVEL 129 MEQ/L (136-145)
[2019-02-24] MEDS ORDERED: DIGOXIN 0.25 MG TAB PO STA (19:30)
[2019-02-24] MEDS: oxyCODONE 10 MG CR TAB PO SCH (20:12)
[2019-02-24] MEDS: ROSUVASTATIN 10 MG TAB (CRESTOR) PO SCH (20:17)
--- NOTE | 2019-02-25 01:38 | IPN ---
DATE OF SERVICE: 02/24/2019 SUBJECTIVE: The patient was seen and examined at the bedside today morning. She was sitting in the sofa. Her intravenous (IV) fluids were stopped yesterday. She is currently on IV fluid restriction. Sodium level is still fluctuating at 128. Renal function is stable at this point. OBJECTIVE: VITAL SIGNS: Temperature is 97.1 degrees Fahrenheit, blood pressure 132/96, pulse is 83, respiratory rate of 16, saturating 92% on room air. INTAKE AND OUTPUT: Urine output recorded is 1.9 liters yesterday and less than a liter so far today since overnight. Weight in the bed scale is 73 kg which is not reliable because there is more than 20 kg difference from bed scale weight yesterday. PHYSICAL EXAMINATION: GENERAL: The patient is awake, alert, oriented x3, sitting up in the sofa in no apparent distress. HEAD AND NECK EXAM: Extraocular muscles intact. Pupils equally round and reactive to light. Mucous membranes are moist. Neck is supple. There is no jugular venous distention (JVD). CARDIOVASCULAR: S1, S2 regular rate. Trace edema of the bilateral lower extremities. RESPIRATORY: Chest is clear to auscultation bilaterally. Decreased breath sounds at the bases, no active rales or rhonchi. ABDOMEN: Soft, obese, positive bowel sounds. Old abdominal surgical scars were noted. MUSCULOSKELETAL: No clubbing or cyanosis. Pulses are 2+. CENTRAL NERVOUS SYSTEM (GREY ROLL WORKER): No focal deficit. Power is 5/5 in all extremities. LABORATORY REVIEW: Complete blood count (CBC) showed white blood cell (WBC) of 12, hemoglobin 13.5, platelets of 465. Basic metabolic panel (BMP) showed sodium 128, potassium 4.1, chloride is 95, bicarbonate 25, BUN 6, creatinine is 0.5, glucose 130, calcium 9.5, magnesium is 1.9. CURRENT INPATIENT MEDICATIONS: The patient's medications were all reviewed by me. - Maxifed - she was given a dose of Maxifed 1 gram intravenous (IV). - tolvaptan - I also gave her a dose of tolvaptan 15 mg by mouth times 1 dose today morning. ASSESSMENT/PLAN: 1. Hyponatremia. The patient has euvolemic hypotonic hyponatremia with high urine osmolality currently being treated as syndrome of inappropriate antidiuretic hormone secretion (SIADH) which can be secondary to a combination of her adenocarcinoma of the lung and recent use of chemotherapy therapy medicine Keytruda which can cause hyponatremia. The patient was on fluid restriction. Sodium level has been fluctuating at 128. I have given her a dose tolvaptan 15 mg by mouth. A repeat BMP will be repeated at 06:00 p.m. today. 2. Hypercalcemia. The patient's calcium level is stable at 9.5 now. The patient is already being treated for metastatic adenocarcinoma of the lung. Avoid further use of calcium supplements. 3. Hypertension. Blood pressure is acceptable at this point. Continue current dose of atenolol 50 mg by mouth twice a day. 4. Elevated thyroid-stimulating hormone (TSH) level. P3 level is still pending. The patient likely has sick euthyroid syndrome or subclinical hypothyroidism. 5. Atrial fibrillation. I see that the patient has been given IV digoxin by the primary team. She is already anticoagulated with Eliquis 5 mg by mouth twice a day. Heart rate is within the normal range now. MTDD
[2019-02-25 06:00] VITALS: BP 124/74
[2019-02-25 06:29] LABS: HEMATOCRIT 39.1 % (36.0-47.0); HEMOGLOBIN 13.1 g/dl (12.0-15.5); MEAN CORPUSCULAR HEMOGLOBIN 29.2 pg (27.0-33.0); MEAN CORPUSCULAR HGB CONC 33.5 g/dl (32.0-36.5); MEAN CORPUSCULAR VOLUME 87.1 fl (80.0-96.0); PLATELET COUNT, AUTOMATED 442 10^3/uL (150-450); RED BLOOD COUNT 4.49 10^6/uL (4.00-5.40); WHITE BLOOD COUNT 11.8 10^3/uL (4.0-10.0)
[2019-02-25 06:53] LABS: BLOOD UREA NITROGEN 6 MG/DL (7-18); CALCIUM LEVEL 9.1 MG/DL (8.8-10.2); CARBON DIOXIDE LEVEL 27 MEQ/L (21-32); CHLORIDE LEVEL 100 MEQ/L (98-107); CREATININE FOR GFR 0.46 MG/DL (0.55-1.30); GLOMERULAR FILTRATION RATE > 60.0 (>39); GLUCOSE, FASTING 137 MG/DL (70-100); POTASSIUM SERUM 4.1 MEQ/L (3.5-5.1); SODIUM LEVEL 134 MEQ/L (136-145)
[2019-02-25] MEDS: HumaLOG INSULIN (NovoLOG) PER UNIT SC SCH ×4 (08:10→20:36)
[2019-02-25] MEDS: MAGNESIUM OXIDE 400 MG TAB (MAG-OX) PO SCH ×2 (08:10→21:07)
[2019-02-25] MEDS: MULTIVITAMINS/MINERALS THERAP 1 TAB PO SCH (08:10)
[2019-02-25] MEDS: ATENOLOL 50 MG TAB PO SCH ×2 (08:10→21:07)
[2019-02-25] MEDS: FAMOTIDINE 20 MG TAB PO SCH ×2 (08:10→21:08)
[2019-02-25] MEDS: CYANOCOBALAMIN 500 MCG TAB PO SCH ×2 (08:11→21:07)
[2019-02-25] MEDS: APIXABAN 5 MG TAB (ELIQUIS) PO SCH ×2 (08:11→21:08)
[2019-02-25] MEDS: oxyCODONE 10 MG CR TAB PO SCH ×2 (08:12→21:06)
[2019-02-25] MEDS ORDERED: DIGOXIN 0.125 MG TAB PO SCH (09:00)
[2019-02-25 09:07] LABS: TOTAL T3 83.7 NG/DL (60.0-181.0)
[2019-02-25] MEDS: METAMUCIL (PSYLLIUM) PACKET PO SCH (09:28)
[2019-02-25 10:01] LABS: HEP C VIRUS AB INDEX SOURCE PT 0.1 INDEX (0.0-0.8); HEPATITIS B SURFACE ANTIGEN NEGATIVE (NEGATIVE)
[2019-02-25] MEDS: oxyCODONE 5MG TAB PO PRN ×3 (12:04→22:40)
--- NOTE | 2019-02-25 13:19 | IPNPDOC ---
Text Note Date of Service The patient was seen on 02/25/19. NOTE Subjective: Pt is a 73 yo female with PMH of . fib (on Eliquis), HTN, and DM2, Ovarian cancer s/p chemo in 2010, Melanoma of her back s/p resection in 2011, Adenoc arcinoma of lung (Dx 09/2018 s/p resection, on chemo now) who presented to the ER after her primary care told her yesterday that she has hyponatremia of 121. Patient has been on Keytruda for chemotherapy recently. . She was admitted to the hospitalist service for hyponatremia. Nephrology was called on consultation. Patient was seen and examined at the bedside. This morning, patient reports that she's feeling better. Over overnight, it was reported that she went into A. fib with RVR. Patient had received digoxin orally, which helped control her rate. Patient denies any chest pain, shortness of breath or palpitations. She notes that her abdominal pain is doing better. Patient denies nausea, vomiting, cause patient, diarrhea or discomfort with urination. 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, possibly 2/2 chemotherapy 2/2 Keytruda - Sodium has improved; near normalized - s/p IV fluid hydration - Has been placed of fluid restriction of 1500 cc by Nephrology - s/p Tolvaptan - Nephrology on consultation s/p Hypercalcemia - Possibly 2/2 calcium supplementation, possibly 2/2 adenocarcinoma - Corrected calcium of 10.4 - PTHrP pending - s/p Calcium supplementation Abdominal pain - suspected to be 2/2 metastatic cancer - Patient reports that she has experienced intermittent abdominal pain since 11/2018 - Has had several imaging modalities completed; included a PET scan recently which she reported as diffuse metastatic cancer - Patient has reported that pain medications help alleviate her pain - She has absolutely refused imaging of her abdomen; I have stressed to her the importance of imaging; she understands risks / benefits - still refuses imaging - Will request records from outpatient for recently completed PET scan - c/w pain control Metastatic Adenocarcinoma of Left Lung - Diagnosed Sep 2018; s/p left lower lobe resection - PET Scan 07/2018 - Patient has been on chemotherapy with Keytruda as an outpatient - As per patient a recent PET scan was complete and she was advised that she had metastasis to her liver - Will request records from outpatient for recently completed PET scan - Patient follows with Dr. Marianne Alcantar as an outpatient s/p Skin Biopsy on 02/11/19 - Is awaiting pathology results - Physical without signs of infection - c/w Aquaphor ointment HTN - BP appears well controlled - c/w Atenolol Atrial fibrillation; s/p A. fib with RVR - In the late night of of 02/23/2019 , patient went into A. fib with RVR - She was transferred to telemetry floor where she could receive IV digoxin - She has since been rate controlled - c/w Atenolol for rate control - Patient has been started on Digoxin; will reduce dose and check levels tomorrow AM - c/w full anticoagulation with Eliquis NIDDM2 - c/w ISS while inpatient s/p Hypomagnesemia GERD - c/w Ranitidine DVT prophylaxis - on full anticoagulation with Eliquis Prognosis: - Guarded Code Status: - DNR / DNI Disposition: - Anticipate discharge within 24-48 hours VS,Rodriguez, I+O VS, Rodriguez, I+O Laboratory Tests 02/24/19 17:45 Anion Gap 10 02/25/19 05:45 Red Blood Count 4.49, Mean Corpuscular Volume 87.1, Mean Corpuscular Hemoglobin 29.2, Mean Corpuscular Hemoglobin Concent 33.5, Red Cell Distribution Width 13.2, Calcium Level 9.1 Vital Signs Date Time Temp Pulse Resp B/P (MAP) Pulse Ox O2 Delivery O2 Flow Rate FiO2 02/25/19 12:04 18 2.0 02/25/19 08:12 97 124/74 02/25/19 06:00 97.7 98 02/22/19 17:00 Room Air I&O- Last 24 Hours up to 6 AM 02/25/19 06:00 Intake Total 1260 ml Output Total 3300 ml Balance -2040 ml BUDDY FERNANDEZ MD February 25, 2019 13:19
[2019-02-25 14:00] VITALS: BP 146/72
--- NOTE | 2019-02-25 16:29 | IPN ---
DATE OF SERVICE: 02/25/2019 SUBJECTIVE: The patient was seen and examined at the bedside today morning. She was sitting in the sofa. She was given a dose of tolvaptan yesterday. Her sodium level has improved to 134. She made a good about amount of urine. Renal function is stable. The patient was requesting her opiate pain medication. She otherwise denies any active complaints. OBJECTIVE: Vital signs: Temperature is 97 degrees Fahrenheit, blood pressure 146/72, pulse is 78, respiratory rate of 18, saturating 97% on nasal cannula at 2 liters. Intake and output: Urine output recorded is 2.7 liters yesterday, 700 mL so far today since overnight. Weight in the bed scale is not available. PHYSICAL EXAMINATION: General: The patient is awake, alert, oriented times three, sitting up in the sofa, in no apparent distress. Head and head and neck examination: Extraocular muscles intact. Pupils equally round and reactive to light. Mucous membranes are moist. Neck is supple. There is no jugular venous distention (JVD). Cardiovascular: S1, S2, regular rate. No edema on the bilateral lower extremities. Respiratory: Chest is clear to auscultation bilaterally. Bilateral equal air entry. Decreased breath sounds at the bases. Abdomen: Soft, obese, positive bowel sounds. Nontender. Musculoskeletal: No clubbing or cyanosis. Pulses are 2+. Central nervous system (SHOWER MAID): No focal deficit. Power is 5/5 in all extremities. LABORATORY REVIEW: Complete blood count (CBC) showed a WBC of 11.8, hemoglobin is 13, platelets are 442. Basic metabolic profile (BMP) showed sodium 134, potassium 4.1, chloride 100, bicarbonate 27, BUN 6, creatinine is 0.46, calcium 9.1. CURRENT INPATIENT MEDICATIONS: The patient's medications were all reviewed by me. There is no change in the medications today as compared with yesterday. ASSESSMENT AND PLAN: 1. Hyponatremia. The patient has euvolemic hypotonic hyponatremia being treated as syndrome of inappropriate antidiuretic hormone secretion (SIADH). She was given a dose of tolvaptan yesterday. Sodium level has improved almost close to normal. Continue fluid restriction, 1.5 liters daily. No need of Lasix and salt tablets at this point. 2. Hypertension. Blood pressure is acceptable. Continue current dose of atenolol 50 mg by mouth twice a day. 3. Sick euthyroid syndrome. The patient had elevated thyroid-stimulating hormone (TSH) level with normal T3 and T4 pointing towards sick euthyroid syndrome. No need of levothyroxine at this time. 4. Metastatic adenocarcinoma of the lung. The patient was getting Keytruda chemotherapy as outpatient. The rest of the management is as per hematology/oncology once the patient is discharged.
[2019-02-25] MEDS: ROSUVASTATIN 10 MG TAB (CRESTOR) PO SCH (21:08)
[2019-02-25 22:00] VITALS: BP 117/70
[2019-02-26] MEDS: oxyCODONE 5MG TAB PO PRN ×5 (03:35→23:08)
[2019-02-26 06:00] VITALS: BP 123/72
[2019-02-26 06:14] LABS: HEMATOCRIT 38.2 % (36.0-47.0); HEMOGLOBIN 12.7 g/dl (12.0-15.5); MEAN CORPUSCULAR HEMOGLOBIN 28.3 pg (27.0-33.0); MEAN CORPUSCULAR HGB CONC 33.2 g/dl (32.0-36.5); MEAN CORPUSCULAR VOLUME 85.1 fl (80.0-96.0); PLATELET COUNT, AUTOMATED 426 10^3/uL (150-450); RED BLOOD COUNT 4.49 10^6/uL (4.00-5.40); WHITE BLOOD COUNT 14.3 10^3/uL (4.0-10.0)
[2019-02-26 07:08] LABS: BLOOD UREA NITROGEN 10 MG/DL (7-18); CALCIUM LEVEL 9.9 MG/DL (8.8-10.2); CARBON DIOXIDE LEVEL 29 MEQ/L (21-32); CHLORIDE LEVEL 95 MEQ/L (98-107); CREATININE FOR GFR 0.54 MG/DL (0.55-1.30); GLOMERULAR FILTRATION RATE > 60.0 (>39); GLUCOSE, FASTING 144 MG/DL (70-100); POTASSIUM SERUM 4.1 MEQ/L (3.5-5.1); SODIUM LEVEL 132 MEQ/L (136-145)
[2019-02-26] MEDS: METAMUCIL (PSYLLIUM) PACKET PO SCH (08:43)
[2019-02-26] MEDS: MULTIVITAMINS/MINERALS THERAP 1 TAB PO SCH (08:44)
[2019-02-26] MEDS: ATENOLOL 50 MG TAB PO SCH ×2 (08:44→23:09)
[2019-02-26] MEDS: DIGOXIN 0.0625MG PER 1/2TABLET PO SCH (08:44)
[2019-02-26] MEDS: FAMOTIDINE 20 MG TAB PO SCH ×2 (08:44→23:07)
[2019-02-26] MEDS: MAGNESIUM OXIDE 400 MG TAB (MAG-OX) PO SCH ×2 (08:44→23:12)
[2019-02-26] MEDS: CYANOCOBALAMIN 500 MCG TAB PO SCH ×2 (08:44→23:09)
[2019-02-26] MEDS: APIXABAN 5 MG TAB (ELIQUIS) PO SCH ×2 (08:44→23:08)
[2019-02-26] MEDS: HumaLOG INSULIN (NovoLOG) PER UNIT SC SCH ×4 (08:46→21:00)
[2019-02-26] MEDS: oxyCODONE 10 MG CR TAB PO SCH ×2 (08:47→23:07)
[2019-02-26] MEDS: FUROSEMIDE 10MG PER 1/2 TABLET PO SCH ×2 (11:27→17:13)
[2019-02-26] MEDS: SODIUM CHLORIDE 1 GM TAB PO SCH ×2 (11:27→23:06)
[2019-02-26] MEDS: SENOKOT S TAB PO SCH ×2 (11:27→23:07)
--- NOTE | 2019-02-26 11:55 | IPN ---
DATE: 02/26/2019 SUBJECTIVE: The patient was seen and examined at the bedside this morning. She is hemodynamically stable. Her sodium level has slightly dropped from 134 to 132 today. She did not get any Lasix, salt tablet or Tolvaptan yesterday. She currently continues to be on fluid restriction. Renal function is stable. OBJECTIVE Vital signs: Temperature is 98.7 degrees Fahrenheit, blood pressure 123/72, pulse is 67, respiratory rate of 19, saturating 99% on nasal cannula at 2 liters. Intake and output: Urine output recorded is 1 liter yesterday and 300 mL so far today since overnight. Weight on the bed scale is not available. PHYSICAL EXAMINATION: GENERAL: The patient is awake, alert, oriented times three, laying in bed in no apparent distress. Head and neck exam: Extraocular muscles intact. Pupils equally round and reactive to light. Mucous membranes are moist. Neck is supple. There is no jugular venous distention (JVD). CARDIOVASCULAR: S1, S2 regular rate. No edema of the bilateral lower extremities. RESPIRATORY: Chest is clear to auscultation bilaterally. Bilateral equal air entry and decreased breath sounds at the bases. ABDOMEN : Soft, obese, positive bowel sounds. Nontender. MUSCULOSKELETAL: No clubbing or cyanosis. Pulses are 2+. CENTRAL NERVOUS SYSTEM (AUTOMOTIVE CENTER MANAGER): No focal deficit. Power is 5/5 in all extremities. PSYCHIATRIC: The patient has a lot of anxiety. LABORATORY REVIEW: CBC showed WBC of 14.3, hemoglobin 12.7, platelets are 426. BMP showed sodium 132, potassium 4.9, chloride 95, bicarbonate is 29, BUN 10, creatinine is 0.5, calcium is 9.9. CURRENT INPATIENT MEDICATIONS: The patient's medications were all reviewed by me. Her digoxin dose has been changed to 0.0625 mg by mouth daily. I have started the patient on Lasix 10 mg by mouth twice a day and salt tablet 1 gram by mouth twice a day. ASSESSMENT/PLAN: 1. Hyponatremia. The patient is being clinically treated as syndrome of inappropriate antidiuretic hormone secretion (SIADH). She got a dose of Tolvaptan 2 days ago and she is on fluid restriction. However, despite fluid restriction, she has slight drop in the sodium levels. I have started the patient on low dose of Lasix 10 mg by mouth twice a day and salt tablet 1 gram by mouth twice a day. 2. Hypertension, blood pressure is acceptable. Continue current dose of atenolol 50 mg by mouth twice a day. Avoid use of GUY inhibitors at this point. 3. Metastatic adenocarcinoma of the lung. The patient was getting Keytruda chemotherapy as an outpatient. She will follow up with Hem/Onc after discharge. DISPOSITION: The patient is optimized from nephrology standpoint to be discharged on Lasix and salt tablet. She will need to follow up with nephrology after discharge from the hospital. MTDD
[2019-02-26 14:00] VITALS: BP 141/98
--- NOTE | 2019-02-26 18:46 | IPNPDOC ---
Subjective Date Seen The patient was seen on 02/26/19. Subjective Chief Complaint/HPI Admitted for hyponatremia Events since last encounter I saw and examined the patient earlier today. She expresses some concern about the fluid restriction. I discussed with the patient regarding the need for the fluid restriction in setting of concern regarding SIADH/hyponatremia. The patient also seems to have some slight confusion. She had repeated some of her questions are couple of times. She does report a previous history of atrial fibrillationdenies feeling palpitations. Denies any overt shortness of breath at this time. No nausea or vomiting. Tolerating oral intake. Denies any loss of bladder/bowel habits. Reports concerns regarding weakness, however reports she would not want to go to longterm facility. Objective Physical Examination General Exam: Positive: Alert, No Acute Distress, Other (little confused) Eye Exam: Positive: PERRLA; Negative: Sclera icteric ENT Exam: Positive: Mucous membr. moist/pink, Other ENT (right face healing ulcer approximately 1 cm in size) Neck Exam: Positive: Supple Chest Exam: Positive: Normal air movement, Diminished (Decreased in left lower lobe region, otherwise CTA b/l); Negative: Rales, Rhonchi, Wheezing Heart Exam: Positive: Rate Normal, Irregular Rhythm Abdomen Exam: Positive: Soft; Negative: Tenderness Extremity Exam: Positive: Normal pulses; Negative: Edema Neuro Exam: Positive: Other (could not tell me the month or the year. She knew where she was and she knew the name of the president. She is moving all 4 extremities.) Psych Exam: Positive: Other (slightly anxious affect) Assessment /Plan Assessment Current Medications Acetaminophen (Tylenol Tab) 650 mg Q4H PRN PO PAIN OR FEVER; Start 02/22/19 at 15:30 Apixaban (Eliquis) 5 mg BID PO Last administered on 02/26/19at 08:44; Start 02/22/19 at 21:00 Atenolol (Tenormin) 50 mg BID PO Last administered on 02/26/19at 08:44; Start 02/22/19 at 21:00 Cyanocobalamin (Vitamin B12) 1,000 mcg BID PO Last administered on 02/26/19at 08:44; Start 02/22/19 at 21:00 Dextrose (Dextrose 50%) 25 ml ASDIRECTED PRN IV SEE LABEL COMMENTS; Start 02/22/19 at 15:45 Digoxin (Lanoxin) 0.0625 mg DAILY PO Last administered on 02/26/19 08:44; Start 02/26/19 at 09:00 Digoxin (Lanoxin) 0.125 mg DAILY PO Last administered on 02/25/19at 08:11; Start 02/25/19 at 09:00; Stop 02/25/19 at 13:14; Status DC Digoxin (Lanoxin) 0.25 mg STAT STAT PO Last administered on 02/24/19at 20:16; Start 02/24/19 at 19:30; Stop 02/24/19 at 19:31; Status DC Emollient Ointment (Aquaphor) 1 dose QIDP TOP ; Start 02/22/19 at 15:45; Stop 02/22/19 at 16:22; Status DC Emollient Ointment (Aquaphor) 1 dose QIDP PRN TOP DRY SKIN Last administered on 02/23/19at 21:04; Start 02/22/19 at 16:30 Famotidine (Pepcid) 20 mg BID PO Last administered on 02/26/19at 08:44; Start 02/22/19 at 21:00 Furosemide (Lasix) 10 mg BID@09,17 PO Last administered on 02/26/19at 17:13; Start 02/26/19 at 09:00 Glucagon (Glucagon) 1 mg ASDIRECTED PRN SC SEE LABEL COMMENTS; Start 02/22/19 at 15:45 Glucose (Glucose) 16 GM ASDIRECTED PRN PO SEE LABEL COMMENTS; Start 02/22/19 at 15:45 Home Med (Med Rec Complete!) ASDIRECTED XX ; Start 02/22/19 at 15:15; Stop 02/22/19 at 15:21; Status DC Insulin Human Lispro (HumaLOG INSULIN) See Protocol Table AC SC Last administered on 02/26/19at 17:14; Start 02/22/19 at 17:30 Insulin Human Lispro (HumaLOG INSULIN) See Protocol Table QHS SC ; Start 02/22/19 at 21:00 Magnesium Hydroxide (Milk Of Magnesia) 30 ml DAILY PRN PO CONSTIPATION Last administered on 02/25/19at 21:08; Start 02/22/19 at 15:30 Magnesium Oxide (Mag-Ox) 400 mg BID PO Last administered on 02/26/19at 08:44; Start 02/22/19 at 21:00 Metformin HCl (Glucophage) 1,000 mg BID@0800,1800 PO ; Start 02/22/19 at 18:00; Stop 02/22/19 at 18:00; Status DC Metoprolol Tartrate (Lopressor) 5 mg ASDIRECTED IV ; Start 02/23/19 at 23:45; Stop 02/24/19 at 00:35; Status DC Multivitamins (Theragram-M) 1 tab DAILY PO Last administered on 02/26/19at 08:44; Start 02/23/19 at 09:00 Oxycodone HCl (OxyCONTIN) 10 mg BID PO Last administered on 02/26/19at 08:47; Start 02/24/19 at 21:00 Oxycodone HCl (Roxicodone, Oxyir) 5 mg Q4HP PRN PO PAIN Last administered on 02/26/19at 17:13; Start 02/22/19 at 17:30 Oxycodone HCl (Roxicodone, Oxyir) 5 mg Q6HP PRN PO PAIN; Start 02/22/19 at 16:00; Stop 02/22/19 at 17:18; Status DC Oxycodone HCl (Roxicodone, Oxyir) 10 mg BID PO Last administered on 02/24/19at 08:44; Start 02/22/19 at 21:00; Stop 02/24/19 at 09:26; Status DC Psyllium Hydrophilic Mucilloid (Metamucil) 1 pkt DAILY PO Last administered on 02/26/19at 08:43; Start 02/23/19 at 09:00; Stop 02/26/19 at 09:59; Status DC Rosuvastatin Calcium (Crestor) 5 mg QHS PO Last administered on 02/25/19at 21:08; Start 02/22/19 at 21:00 Senna/Docusate Sodium (Senokot S) 1 tab BID PO Last administered on 02/26/19at 11:27; Start 02/26/19 at 09:00 Sodium Chloride 1,000 ml @ 60 mls/hr [id number] IV Last administered on 02/22/19at 19:10; Start 02/22/19 at 17:30; Stop 5/25/19 at 10:09; Status DC Sodium Chloride 1,000 ml @ 80 mls/hr [id number] IV ; Start 02/22/19 at 16:30; Stop 02/22/19 at 17:42; Status DC Sodium Chloride 1,000 ml @ 125 mls/hr Q8H IV Last administered on 02/22/19at 12:15; Start 02/22/19 at 12:15; Stop 02/22/19 at 14:31; Status DC Sodium Chloride (Sodium Chloride) 1 gm BID PO Last administered on 02/26/19at 11:27; Start 02/26/19 at 09:00 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, possibly 2/2 chemotherapy 2/2 Keytruda y -s/p Tolvaptan -Being seen by nephrologyappreciate input -Continue 1500 mL per day for restriction s/p Hypercalcemia - Possibly 2/2 calcium supplementation vs possibly 2/2 adenoca rcinoma - PTHrP pending Abdominal pain - suspected to be 2/2 metastatic cancer - Refused imaging of her abdomen during this stay Metastatic Adenocarcinoma of Left Lung -Diagnosed Sep 2018; s/p left lower lobe resection -PET Scan 07/2018 -Patient has been on chemotherapy with Keytruda as an outpatient -As per patient a recent PET scan was complete and she was advised that she had metastasis to her liver -Patient follow-up with Dr. Marianne Alcantar on discharge s/p Skin Biopsy on 02/11/19 -Outpatient follow-up on pathology results -No infection -c/w Aquaphor ointment HTN -Ct Atenolol A. fib RVR now rate controlled: -Continue oral digoxin -Level 1.0 -Continue atenolol, Apixaban NIDDM2 - c/w ISS while inpatient Hypomagnesemia -Resolved GERD -Ct Ranitidine DVT prophylaxis -Ct Eliquis Disposition: Patient has not been cleared by PT/OT yet. Discussed with patient regarding consideration for longterm facility if she remains weak however she wishes to go home on discharge. May require home with home health once safe for her to be discharged home. May require home nursing as well to reinforce regarding fluid restriction. Plan/VTE VTE Prophylaxis Ordered?: Yes (rinku, TEDS, and SCD) VS, I&O, 24H, Fishbone Vital Signs/I&O Vital Signs Date Time Temp Pulse Resp B/P (MAP) Pulse Ox O2 Delivery O2 Flow Rate FiO2 02/26/19 18:01 18 02/26/19 14:00 98.3 92 141/98 (112) 98 2.0 02/22/19 17:00 Room Air I&O- Last 24 Hours up to 6 AM 02/26/19 06:00 Intake Total 700 ml Output Total 750 ml Balance -50 ml Laboratory Data 24H LABS Laboratory Tests 2 02/25/19 20:21: Bedside Glucose (Misc Panel) 121H 02/26/19 06:03: Nucleated Red Blood Cells % (auto) 0.0, Anion Gap 8, Glomerular Filtration Rate > 60.0, Blood Urea Nitrogen 10#, Creatinine 0.54L, Sodium Level 132L, Potassium Level 4.1, Chloride Level 95L, Carbon Dioxide Level 29, Calcium Level 9.9, Digoxin Level 1.0 02/26/19 11:34: Bedside Glucose (Misc Panel) 150H 02/26/19 16:38: Bedside Glucose (Misc Panel) 158H CBC/BMP Laboratory Tests 02/26/19 06:03 Red Blood Count 4.49, Mean Corpuscular Volume 85.1, Mean Corpuscular Hemoglobin 28.3, Mean Corpuscular Hemoglobin Concent 33.2, Red Cell Distribution Width 13.1, Calcium Level 9.9 SHERIF JUDGE MD February 26, 2019 18:46
[2019-02-26 22:00] VITALS: BP 136/71
[2019-02-26] MEDS: ROSUVASTATIN 10 MG TAB (CRESTOR) PO SCH (23:12)
[2019-02-27] MEDS: oxyCODONE 5MG TAB PO PRN ×4 (03:21→17:45)
[2019-02-27 06:00] VITALS: BP 106/55
[2019-02-27 06:35] LABS: HEMATOCRIT 39.2 % (36.0-47.0); HEMOGLOBIN 12.9 g/dl (12.0-15.5); MEAN CORPUSCULAR HEMOGLOBIN 29.3 pg (27.0-33.0); MEAN CORPUSCULAR HGB CONC 32.9 g/dl (32.0-36.5); MEAN CORPUSCULAR VOLUME 88.9 fl (80.0-96.0); PLATELET COUNT, AUTOMATED 401 10^3/uL (150-450); RED BLOOD COUNT 4.41 10^6/uL (4.00-5.40); WHITE BLOOD COUNT 12.3 10^3/uL (4.0-10.0)
[2019-02-27 07:01] LABS: BLOOD UREA NITROGEN 10 MG/DL (7-18); CALCIUM LEVEL 10.3 MG/DL (8.8-10.2); CARBON DIOXIDE LEVEL 31 MEQ/L (21-32); CHLORIDE LEVEL 96 MEQ/L (98-107); GLOMERULAR FILTRATION RATE > 60.0 (>39); GLUCOSE, FASTING 136 MG/DL (70-100); SODIUM LEVEL 134 MEQ/L (136-145)
[2019-02-27] MEDS: ATENOLOL 50 MG TAB PO SCH ×2 (08:34→20:36)
[2019-02-27] MEDS: MULTIVITAMINS/MINERALS THERAP 1 TAB PO SCH (08:34)
[2019-02-27] MEDS: FUROSEMIDE 10MG PER 1/2 TABLET PO SCH ×2 (08:34→17:44)
[2019-02-27] MEDS: FAMOTIDINE 20 MG TAB PO SCH ×2 (08:34→20:35)
[2019-02-27] MEDS: MAGNESIUM OXIDE 400 MG TAB (MAG-OX) PO SCH ×2 (08:34→20:33)
[2019-02-27] MEDS: CYANOCOBALAMIN 500 MCG TAB PO SCH ×2 (08:35→20:35)
[2019-02-27] MEDS: DIGOXIN 0.0625MG PER 1/2TABLET PO SCH (08:35)
[2019-02-27] MEDS: SENOKOT S TAB PO SCH ×2 (08:35→20:33)
[2019-02-27] MEDS: APIXABAN 5 MG TAB (ELIQUIS) PO SCH ×2 (08:35→20:35)
[2019-02-27] MEDS: SODIUM CHLORIDE 1 GM TAB PO SCH ×2 (08:35→20:35)
[2019-02-27] MEDS: oxyCODONE 10 MG CR TAB PO SCH ×2 (08:37→20:35)
[2019-02-27] MEDS: HumaLOG INSULIN (NovoLOG) PER UNIT SC SCH ×4 (08:37→21:00)
--- NOTE | 2019-02-27 12:37 | IPN ---
DATE OF SERVICE: 02/27/2019 SUBJECTIVE: Patient was seen and examined at the bedside today morning. She is sitting up in the sofa. Her sodium level is slightly better today. Sodium is up to 134. She is tolerating the Lasix and salt tablets. She denies any active complaints. OBJECTIVE: Vital signs: Temperature is 98 degrees Fahrenheit. Blood pressure is 106/55. Pulse is 90, respiratory of 18, saturating 93% on 2 liters nasal cannula. Intake and output: Urine output recorded is 600 mL yesterday. There is no urine output recorded. She had two incontinent voids so far. PHYSICAL EXAMINATION: General: Patient is awake, alert, oriented times three, sitting up in the sofa, in no apparent distress. Head and neck exam: Pupils equally round and reactive to light. She has an ulceration on the right cheek. Neck is supple. There is no jugular venous distention (JVD). Cardiovascular: S1, S2. Regular rate. No edema of the bilateral lower extremities. Respiratory: Chest is clear to auscultation bilaterally. Bilateral equal air entry. No rales or rhonchi. Abdomen: Soft. Positive bowel sounds. Nontender. No organomegaly. Musculoskeletal: No clubbing or cyanosis. Pulses are 2+. Central nervous system (WAREHOUSE ASSISTANT). No focal deficit. Power is 5/5 in all extremities. LAB REVIEW: Complete blood count (CBC) showed WBC 12.3, hemoglobin 12.9. Basic metabolic panel (BMP) showed sodium 134, potassium is 5, chloride 96, bicarbonate 31, BUN 10, creatinine 0.7, calcium is 10.3. CURRENT INPATIENT MEDICATIONS: The patient's medications were all reviewed by me. She continues to be on furosemide 10 mg p.o. twice a day and salt tablet 1 gram by mouth twice a day. ASSESSMENT AND PLAN: 1. Hyponatremia. Patient is currently on Lasix and salt tablets for treatment of syndrome of inappropriate secretion of antidiuretic hormone (SIADH). She is also on fluid restriction. Sodium levels are fluctuating between 132-134, which is optimal. 2. Hypertension. Continue current dose of atenolol. Avoid use of angiotensin-converting enzyme (GUY) inhibitors. 3. Hypercalcemia. Most likely associated with malignancy. Calcium levels are staying close to 10. The patient's calcium level goes high tomorrow, then I will give her a dose of zoledronic acid for hypercalcemia of malignancy. 4. Metastatic adenocarcinoma of the lung. Patient will get Keytruda as outpatient once she is discharged from the hospital. As reported by the patient, she has mets to the liver. MTDD
[2019-02-27 14:00] VITALS: BP 122/75
--- NOTE | 2019-02-27 18:47 | IPNPDOC ---
Subjective Date Seen The patient was seen on 02/27/19. Subjective Chief Complaint/HPI Admitted for hyponatremia Events since last encounter The patient denies any problems with headaches/change in vision or any new numbness or weakness. Tolerating oral intake. Denies any chest pain or shortness of breath. Report some abdominal pain on and off involving left lower quadrant of her abdomen which she attributes to her underlying ovarian cancer. Had a bowel movement today. Urinating okay. Per nursing staff, patient seemed a little confused last night. Objective Physical Examination General Exam: Positive: Alert, No Acute Distress, Other (sitting up in chair) Eye Exam: Positive: PERRLA; Negative: Sclera icteric ENT Exam: Positive: Mucous membr. moist/pink, Other ENT (right face healing ulcer approximately 1 cm in size) Neck Exam: Positive: Supple Chest Exam: Positive: Normal air movement; Negative: Rales, Rhonchi, Wheezing Heart Exam: Positive: Rate Normal, Irregular Rhythm; Negative: Tachycardic Abdomen Exam: Positive: Soft; Negative: Tenderness Extremity Exam: Positive: Normal pulses; Negative: Edema Neuro Exam: Positive: Other (the patient knew she was in the hospital. She was able to tell me the month/year and she knew the name of the president.) Assessment /Plan Assessment Current Medications Acetaminophen (Tylenol Tab) 650 mg Q4H PRN PO PAIN OR FEVER; Start 02/22/19 at 15:30 Apixaban (Eliquis) 5 mg BID PO Last administered on 02/27/19at 08:35; Start 02/22/19 at 21:00 Atenolol (Tenormin) 50 mg BID PO Last administered on 02/27/19at 08:34; Start 02/22/19 at 21:00 Cyanocobalamin (Vitamin B12) 1,000 mcg BID PO Last administered on 02/27/19at 08:35; Start 02/22/19 at 21:00 Dextrose (Dextrose 50%) 25 ml ASDIRECTED PRN IV SEE LABEL COMMENTS; Start 02/22/19 at 15:45 Digoxin (Lanoxin) 0.0625 mg DAILY PO Last administered on 02/27/19at 08:35; Start 02/26/19 at 09:00 Digoxin (Lanoxin) 0.125 mg DAILY PO Last administered on 02/25/19at 08:11; Start 02/25/19 at 09:00; Stop 02/25/19 at 13:14; Status DC Digoxin (Lanoxin) 0.25 mg STAT STAT PO Last administered on 02/24/19at 20:16; Start 02/24/19 at 19:30; Stop 02/24/19 at 19:31; Status DC Emollient Ointment (Aquaphor) 1 dose QIDP TOP ; Start 02/22/19 at 15:45; Stop 02/22/19 at 16:22; Status DC Emollient Ointment (Aquaphor) 1 dose QIDP PRN TOP DRY SKIN Last administered on 02/23/19at 21:04; Start 02/22/19 at 16:30 Famotidine (Pepcid) 20 mg BID PO Last administered on 02/27/19at 08:34; Start 02/22/19 at 21:00 Furosemide (Lasix) 10 mg BID@09,17 PO Last administered on 02/27/19at 17:44; Start 02/26/19 at 09:00 Glucagon (Glucagon) 1 mg ASDIRECTED PRN SC SEE LABEL COMMENTS; Start 02/22/19 at 15:45 Glucose (Glucose) 16 GM ASDIRECTED PRN PO SEE LABEL COMMENTS; Start 02/22/19 at 15:45 Home Med (Med Rec Complete!) ASDIRECTED XX ; Start 02/22/19 at 15:15; Stop 02/22/19 at 15:21; Status DC Insulin Human Lispro (HumaLOG INSULIN) See Protocol Table AC SC Last administered on 02/27/19at 17:45; Start 02/22/19 at 17:30 Insulin Human Lispro (HumaLOG INSULIN) See Protocol Table QHS SC ; Start 02/22/19 at 21:00 Magnesium Hydroxide (Milk Of Magnesia) 30 ml DAILY PRN PO CONSTIPATION Last administered on 02/25/19at 21:08; Start 02/22/19 at 15:30 Magnesium Oxide (Mag-Ox) 400 mg BID PO Last administered on 02/27/19at 08:34; Start 02/22/19 at 21:00 Metformin HCl (Glucophage) 1,000 mg BID@0800,1800 PO ; Start 02/22/19 at 18:00; Stop 02/22/19 at 18:00; Status DC Metoprolol Tartrate (Lopressor) 5 mg ASDIRECTED IV ; Start 02/23/19 at 23:45; Stop 02/24/19 at 00:35; Status DC Multivitamins (Theragram-M) 1 tab DAILY PO Last administered on 02/27/19at 08:34; Start 02/23/19 at 09:00 Oxycodone HCl (OxyCONTIN) 10 mg BID PO Last administered on 02/27/19at 08:37; Start 02/24/19 at 21:00 Oxycodone HCl (Roxicodone, Oxyir) 5 mg Q4HP PRN PO PAIN Last administered on 02/27/19at 17:45; Start 02/22/19 at 17:30 Oxycodone HCl (Roxicodone, Oxyir) 5 mg Q6HP PRN PO PAIN; Start 02/22/19 at 16:00; Stop 02/22/19 at 17:18; Status DC Oxycodone HCl (Roxicodone, Oxyir) 10 mg BID PO Last administered on 02/24/19at 08:44; Start 02/22/19 at 21:00; Stop 02/24/19 at 09:26; Status DC Psyllium Hydrophilic Mucilloid (Metamucil) 1 pkt DAILY PO Last administered on 02/26/19at 08:43; Start 02/23/19 at 09:00; Stop 02/26/19 at 09:59; Status DC Rosuvastatin Calcium (Crestor) 5 mg QHS PO Last administered on 02/26/19at 23:12; Start 02/22/19 at 21:00 Senna/Docusate Sodium (Senokot S) 1 tab BID PO Last administered on 02/27/19at 08:35; Start 02/26/19 at 09:00 Sodium Chloride 1,000 ml @ 60 mls/hr [id number] IV Last administered on 02/22/19at 19:10; Start 02/22/19 at 17:30; Stop 02/23/19 at 10:09; Status DC Sodium Chloride 1,000 ml @ 80 mls/hr [id number] IV ; Start 02/22/19 at 16:30; Stop 02/22/19 at 17:42; Status DC Sodium Chloride 1,000 ml @ 125 mls/hr Q8H IV Last administered on 02/22/19at 12:15; Start 02/22/19 at 12:15; Stop 02/22/19 at 14:31; Status DC Sodium Chloride (Sodium Chloride) 1 gm BID PO Last administered on 02/27/19at 08:35; Start 02/26/19 at 09:00 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, possibly 2/2 chemotherapy 2/2 Keytruda y -s/p Tolvaptan -Being seen by nephrologyappreciate input -Continue 1500 mL per day for restriction -Avoid Brando inhibitors s/p Hypercalcemia - Possibly 2/2 calcium supplementation vs possibly 2/2 adenocarcinoma - PTHrP and 1,25 dihydroxy vitamin D pending Abdominal pain - suspected to be 2/2 metastatic cancer - Refused imaging of her abdomen during this stay Metastatic Adenocarcinoma of Left Lung -Diagnosed Sep 2018; s/p left lower lobe resection -PET Scan 07/2018 -Patient has been on chemotherapy with Keytruda as an outpatient -As per patient a recent PET scan was complete and she was advised that she had metastasis to her liver -Patient follow-up with Dr. Marianne Alcantar on discharge s/p Skin Biopsy on 02/11/19 -Outpatient follow-up on pathology results -No infection -c/w Aquaphor ointment HTN -Ct Atenolol A. fib RVR now rate controlled: -Continue oral digoxin, atenolol, Apixaban -Digoxin Level was 1.0 NIDDM2 - c/w ISS while inpatient Hypomagnesemia -Resolved GERD -Ct Ranitidine Nighttime confusion: -The patient had seemed a little confused earlier in the day but apparently was more confused last night -She herself denies having any problems with confusion last night when asked about the same -Reports she was upset at not getting pain medication on time -Reports she has had an MRI brain at [facility]. In the past couple of weeksthis was verified with the son Fili. I have requested records of the same. -Currently patient is oriented 3 and moving all 4 extremities. DVT prophylaxis -Ct Eliquis Disposition: Discussed with patient and her son Fili today. The patient will likely require 24 hour caregiver support at least for the short-term until her mentation is better. In addition, patient will also likely require oxygen on discharge. Discussed with Fili that we will plan on discharging patient home tomorrow so long as we are able to ensure 24 hour caregiver support at homeit would be unsafe to discharge patient home by herself Plan/VTE VTE Prophylaxis Ordered?: Yes (eliquis, TEDS, and SCD) VS, I&O, 24H, Fishbone Vital Signs/I&O Vital Signs Date Time Temp Pulse Resp B/P (MAP) Pulse Ox O2 Delivery O2 Flow Rate FiO2 02/27/19 18:17 18 02/27/19 14:00 96.7 96 122/75 (91) 93 2.0 02/22/19 17:00 Room Air I&O- Last 24 Hours up to 6 AM 02/27/19 06:00 Intake Total 794 ml Output Total 301 ml Balance 493 ml Laboratory Data 24H LABS Laboratory Tests 2 02/26/19 20:08: Bedside Glucose (Misc Panel) 147H 02/27/19 06:01: Nucleated Red Blood Cells % (auto) 0.0, Anion Gap 7L, Glomerular Filtration Rate > 60.0, Blood Urea Nitrogen 10, Creatinine 0.70, Sodium Level 134L, Potassium Level 5.0#, Chloride Level 96L, Carbon Dioxide Level 31, Calcium Level 10.3H CBC/BMP Laboratory Tests 02/27/19 06:01 Red Blood Count 4.41, Mean Corpuscular Volume 88.9, Mean Corpuscular Hemoglobin 29.3, Mean Corpuscular Hemoglobin Concent 32.9, Red Cell Distribution Width 13.2, Calcium Level 10.3 H SHERIF JUDGE MD February 27, 2019 18:47
[2019-02-27] MEDS: ROSUVASTATIN 10 MG TAB (CRESTOR) PO SCH (20:34)
[2019-02-27 22:00] VITALS: BP 105/63
[2019-02-28 06:00] VITALS: BP 120/73
[2019-02-28 06:37] LABS: BASO # 0.1 10^3/uL (0.0-0.2); BASO % 0.5 % (0.0-1.0); EOS # 0.1 10^3/uL (0.0-0.50); EOS % 0.9 % (0.0-3.0); HEMATOCRIT 39.4 % (36.0-47.0); HEMOGLOBIN 12.9 g/dl (12.0-15.5); LYMPH # 1.8 10^3/uL (1.5-4.5); LYMPH % 17.1 % (24.0-44.0); MEAN CORPUSCULAR HEMOGLOBIN 29.4 pg (27.0-33.0); MEAN CORPUSCULAR HGB CONC 32.7 g/dl (32.0-36.5); MEAN CORPUSCULAR VOLUME 89.7 fl (80.0-96.0); MONO # 1.2 10^3/uL (0.0-0.8); MONO % 11.5 % (0.0-5.0); NEUTROPHILS # 7.5 10^3/uL (1.8-7.7); NEUTROPHILS % 69.6 % (36.0-66.0); PLATELET COUNT, AUTOMATED 383 10^3/uL (150-450); RED BLOOD COUNT 4.39 10^6/uL (4.00-5.40); WHITE BLOOD COUNT 10.7 10^3/uL (4.0-10.0)
[2019-02-28 06:48] LABS: BLOOD UREA NITROGEN 10 MG/DL (7-18); CALCIUM LEVEL 10.6 MG/DL (8.8-10.2); CARBON DIOXIDE LEVEL 29 MEQ/L (21-32); CHLORIDE LEVEL 98 MEQ/L (98-107); CREATININE FOR GFR 0.56 MG/DL (0.55-1.30); GLOMERULAR FILTRATION RATE > 60.0 (>39); GLUCOSE, FASTING 138 MG/DL (70-100); MAGNESIUM LEVEL 1.9 MG/DL (1.8-2.4); PHOSPHORUS LEVEL 3.3 MG/DL (2.5-4.9); POTASSIUM SERUM 4.2 MEQ/L (3.5-5.1); SODIUM LEVEL 133 MEQ/L (136-145)
[2019-02-28] MEDS: oxyCODONE 5MG TAB PO PRN (07:01)
[2019-02-28] MEDS: APIXABAN 5 MG TAB (ELIQUIS) PO SCH (08:41)
[2019-02-28] MEDS: CYANOCOBALAMIN 500 MCG TAB PO SCH (08:41)
[2019-02-28] MEDS: SODIUM CHLORIDE 1 GM TAB PO SCH (08:41)
[2019-02-28] MEDS: oxyCODONE 10 MG CR TAB PO SCH (08:43)
[2019-02-28] MEDS: DIGOXIN 0.0625MG PER 1/2TABLET PO SCH (08:43)
[2019-02-28 08:44] VITALS: BP 118/98
[2019-02-28] MEDS: FAMOTIDINE 20 MG TAB PO SCH (08:44)
[2019-02-28] MEDS: MULTIVITAMINS/MINERALS THERAP 1 TAB PO SCH (08:44)
[2019-02-28] MEDS: ATENOLOL 50 MG TAB PO SCH (08:44)
[2019-02-28] MEDS: MAGNESIUM OXIDE 400 MG TAB (MAG-OX) PO SCH (08:44)
[2019-02-28] MEDS: SENOKOT S TAB PO SCH (08:44)
[2019-02-28] MEDS: FUROSEMIDE 10MG PER 1/2 TABLET PO SCH (08:44)
[2019-02-28] MEDS: HumaLOG INSULIN (NovoLOG) PER UNIT SC SCH ×2 (08:45→11:58)
[2019-02-28] MEDS ORDERED: ZOLEDRONIC ACID 4 MG in D5W 100 ML IV ONE (09:00)
[2019-02-28] MEDS ORDERED: DIGO0.12 PO (11:38)
[2019-02-28] MEDS ORDERED: SENN-52 PO (11:38)
[2019-02-28] MEDS ORDERED: SODI1TAB6 PO (11:38)
[2019-02-28] MEDS ORDERED: FURO20TA2 PO (11:38)
--- NOTE | 2019-02-28 13:59 | IPNPDOC ---
Date Seen The patient was seen on 02/28/19. She was about to receive medication to improve her hypercalcemia. She statedd she was going home later today and had arranged fro nursing care as needed. She stated she is still not feeling she needs hospice at this time, but agreed that her condition could change at any time and she then, may also change her mind. She does have contact information for myself and Avis Phelan, PHYLLIS with both [facility]. I contacted her son Edgar who confirmed the plan is to bring her home. He alos has our contact information should Trudi require a transition to hospice residence or hospice care in her home. Progress Note SUBJECTIVE: Patient is a 73 year-old female with metastatic cancer. OBJECTIVE PHYSICAL EXAMINATION: VITAL SIGNS: Please see below. GENERAL: Alert, somewhat [id number] but able to make her needs known. HEENT: mucous membranes dry. CARDIOVASCULAR: RRR, S1 S2 RESPIRATORY: Wearing O2, no distress ABDOMINAL: soft, no distention EXTREMITIES: no C/C/E NEUROLOGICAL: mildly confused PSYCHOLOGICAL: appeared euthymic LABORATORY DATA, IMAGING STUDIES, MICROBIOLOGY: Please see below. Plan: Trudi has been offered hospice but does not want that at this time. Her greatest wish is to return to her home and this willbe done later today with nursing and family support. When she is ready to accept hosoice care, she and her family are aware how to reach hospice. VS, I&O, 24H, Fishbone Vital Signs/I&O Vital Signs Date Time Temp Pulse Resp B/P (MAP) Pulse Ox O2 Delivery O2 Flow Rate FiO2 02/28/19 08:44 104 118/98 02/28/19 08:43 18 02/28/19 07:01 95 02/28/19 06:00 96.9 1.0 02/22/19 17:00 Room Air I&O- Last 24 Hours up to 6 AM 02/28/19 06:00 Intake Total 1400 ml Output Total 250 ml Balance 1150 ml Laboratory Data 24H LABS Laboratory Tests 2 02/27/19 17:16: Bedside Glucose (Misc Panel) 147H 02/28/19 06:14: Immature Granulocyte % (Auto) 0.4, White Blood Count 10.7H, Red Blood Count 4.39, Hemoglobin 12.9, Hematocrit 39.4, Mean Corpuscular Volume 89.7, Mean Corpuscular Hemoglobin 29.4, Mean Corpuscular Hemoglobin Concent 32.7, Red Cell Distribution Width 13.2, Platelet Count 383, Neutrophils (%) (Auto) 69.6H, Lym phocytes (%) (Auto) 17.1L, Monocytes (%) (Auto) 11.5H, Eosinophils (%) (Auto) 0.9, Basophils (%) (Auto) 0.5, Neutrophils # (Auto) 7.5, Lymphocytes # (Auto) 1.8, Monocytes # (Auto) 1.2H, Eosinophils # (Auto) 0.1, Basophils # (Auto) 0.1, Nucleated Red Blood Cells % (auto) 0.0, Anion Gap 6L, Glomerular Filtration Rate > 60.0, Blood Urea Nitrogen 10, Creatinine 0.56, Sodium Level 133L, Potassium Level 4.2, Chloride Level 98, Carbon Dioxide Level 29, Calcium Level 10.6H, Phosphorus Level 3.3, Magnesium Level 1.9 02/28/19 11:33: Bedside Glucose (Misc Panel) 175H CBC/BMP Laboratory Tests 02/28/19 06:14 Red Blood Count 4.39, Mean Corpuscular Volume 89.7, Mean Corpuscular Hemoglobin 29.4, Mean Corpuscular Hemoglobin Concent 32.7, Red Cell Distribution Width 13.2, Neutrophils (%) (Auto) 69.6 H, Lymphocytes (%) (Auto) 17.1 L, Monocytes (%) (Auto) 11.5 H, Eosinophils (%) (Auto) 0.9, Basophils (%) (Auto) 0.5, Neutrophils # (Auto) 7.5, Lymphocytes # (Auto) 1.8, Monocytes # (Auto) 1.2 H, Eosinophils # (Auto) 0.1, Basophils # (Auto) 0.1, Calcium Level 10.6 H Senia DOMINIQUE February 28, 2019 13:59
[2019-02-28 14:00] VITALS: BP 138/77
--- NOTE | 2019-02-28 17:19 | IPN ---
DATE: 02/28/2019 SUBJECTIVE: The patient was seen and examined at the bedside today morning. She was actually sitting in the sofa. She is afebrile and hemodynamically stable. Her sodium level is staying stable with the current dose of Lasix and salt tablets. She has slightly worsening hypercalcemia with a calcium of 10.6 today. She denies any other active complaints. OBJECTIVE Vital signs: Temperature is 96.9 degrees Fahrenheit. Blood pressure 118/98, pulse is 104, respiratory rate of 18, saturating 95% on nasal cannula at 1 liter. Intake and output. There is no urine output recorded. Weight in the bed scale is not available. PHYSICAL EXAMINATION General: The patient is awake, alert, oriented times three, sitting up in the sofa. No apparent distress. Head and neck examination: Extraocular muscles intact. Pupils equally round and reactive to light. Small ulcer on the cheek was noted. Neck is supple. There is no JVD. Cardiovascular: S1, S2, regular rate. No edema of the bilateral lower extremities. Respiratory: Chest is clear to auscultation bilaterally. Bilateral equal air entry. No rales or rhonchi. Abdomen: Soft. Positive bowel sounds. Nontender. No organomegaly. Musculoskeletal: No clubbing or cyanosis. Pulses are 2+. FERTILIZER MIXER: No focal deficit. Power is 5/5 in all extremities. LAB REVIEW: CBC showed a WBC of 10.7, hemoglobin 12.9, platelets of 383. BMP showed sodium 133, potassium 4.2, chloride 98, bicarb 29, BUN 10, creatinine is 0.5, calcium is 10.6, phosphorus 3.3, magnesium 1.9. PTS related protein is still pending. CURRENT INPATIENT MEDICATIONS: The patient's medications were all reviewed by me. One dose of IV zoledronic acid was ordered today morning. No other change in the medications today as compared with yesterday. ASSESSMENT/PLAN 1. Hyponatremia. Continue current dose of Lasix and salt tablet. Sodium level has been fluctuating above 130 which is acceptable. Continue the fluid restriction of 1.5 liters daily. 2. Hypertension. Blood pressure is acceptable. Continue current dose of atenolol. 3. Hypercalcemia. The patient has hypercalcemia of malignancy. She has metastatic adenocarcinoma of the lung. She will be given a dose of zoledronic acid 4 mg IV today. 4. Metastatic adenocarcinoma of the lung. The patient will get chemotherapy as outpatient after discharge. Management of hypercalcemia is as mentioned above. 5. Disposition. It is okay to discharge the patient from nephrology standpoint after the IV of zoledronic acid. The patient's sodium level has been staying stable. Nephrology service is going to sign off at this moment. Please call nephrology service for any help in the management of this patient during this hospitalization. ALEXD
--- NOTE | 2019-02-28 19:45 | DS.PDOC ---
Discharge Summary General Date of Admission February 22, 2019 at 15:09 Date of Discharge 02/28/19 Discharge Summary PROCEDURES PERFORMED DURING STAY: None. 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 fib RVR now rate controlled, [id number] diabetes mellitus type 2, hypomagnesemia, GERD, episodes of confusionsuspect related to opioid pain medications COMPLICATIONS/CHIEF COMPLAINT: Hyponatremia. HISTORY OF PRESENT ILLNESS: The patient is a 72-year-old female with a previous history of ovarian cancer status post chemotherapy in 2010, melanoma of her back status post resection in 2011, adenocarcinoma of lung diagnoses in September 2018 status post resection currently on chemotherapy with Keytruda as well as atrial fibrillation on a liquid's who presented to the ER after being advised by her primary care physician to come and for concerns regarding hyponatremia. Sodium was found to be 127 on initial presentation. Patient was admitted to a facility for further management. 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 s/p Hypercalcemia - Possibly 2/2 calcium supplementation vs possibly 2/2 adenocarcinoma - PTHrP and 1,25 dihydroxy vitamin D pending -Patient was given 1 dose of Zometa per nephrology recommendations4 mg dose administered today Abdominal pain - suspected to be 2/2 metastatic cancer - Refused imaging of her abdomen during this stay Metastatic Adenocarcinoma of Left Lung -Diagnosed Sep 2018; s/p left lower lobe resection -Patient has been on chemotherapy with Keytruda as an outpatient -Discussed with patient's oncologist Dr. Padron in [facility] -Patient to follow-up with Dr. Padron on discharge s/p Skin Biopsy on 02/11/19 -Outpatient follow-up on pathology results -No infection -c/w Aquaphor ointment HTN -Ct Atenolol A. fib RVR now rate controlled: -Patient was given digoxin load and started on oral digoxin subsequently -Continue oral digoxin, atenolol, Apixaban -Digoxin Level was 1.0 NIDDM2 -Was on ISS while inpatient - resume oral meds on discharge Hypomagnesemia -Resolved GERD -Ct Ranitidine Nighttime confusion: -Suspect to some extent related to opiate pain medications. Patient generally otherwise seems to be oriented 3. -Patient had recent MRI at [facility] which did not show any metastatic diseas e or acute findings On day of discharge, patient is doing well. She has been able to ambulate fairly independently with use of walker. She did have problems with hypoxia with ambulation as well as at rest with talking- her O2 saturations had dropped as low as into the 70s to 80s she is going to require 3 L home oxygen continuous use 24/04 by nasal cannula. With 3 L oxygen, she seems to run in the 90s for the most part although she still very briefly occasionally drops into the 80s. Patient's family is going to provide support at home and are going to be gone for the most part except for a few hours each day. The patient had refused to consider residential facility placement. She is otherwise tolerating oral intake well, heart rate 7 controlled, sodium has been stable and plan is for the patient to be discharged home today. Patient wishes to continue with Keytruda at least a couple more times before considering hospice. DISCHARGE MEDICATIONS: Please see below. ALLERGIES: Please see below. PHYSICAL EXAMINATION ON DISCHARGE: VITAL SIGNS: Please see below. GENERAL: Sitting up in bed HEENT: PERRL CARDIOVASCULAR EXAMINATION: S1, S2 heard, irregularly irregular, no rubs or gallops RESPIRATORY EXAMINATION: Diminished air entry at left lung base. No overt wheezing or distress ABDOMINAL EXAMINATION: Soft, nontender NEUROLOGICAL EXAMINATION: Awake, alert, oriented 3 LABORATORY DATA: Please see below. IMAGING: None PROGNOSIS: Guarded ACTIVITY: As tolerated. DIET: Carbohydrate controlled, 1500 mL fluid restriction DISCHARGE PLAN: Plan is for patient to discharge home today. Outpatient follow- up with the primary care provider Dr. Cox in one week and outpatient fol low-up with Dr. Padron from hematology oncology per previous appointment. DISPOSITION: Home DISCHARGE CONDITION: Stable. TIME SPENT ON DISCHARGE: 50 minutes. Vital Signs/I&Os Vital Signs Date Time Temp Pulse Resp B/P (MAP) Pulse Ox O2 Delivery O2 Flow Rate FiO2 02/28/19 08:44 104 118/98 02/28/19 08:43 18 02/28/19 07:01 95 02/28/19 06:00 96.9 1.0 02/22/19 17:00 Room Air I&O- Last 24 Hours up to 6 AM 02/28/19 06:00 Intake Total 1400 ml Output Total 250 ml Balance 1150 ml Laboratory Data Labs 24H Laboratory Tests 2 02/28/19 06:14: Immature Granulocyte % (Auto) 0.4, White Blood Count 10.7H, Red Blood Count 4.39 , Hemoglobin 12.9, Hematocrit 39.4, Mean Corpuscular Volume 89.7, Mean Corpuscular Hemoglobin 29.4, Mean Corpuscular Hemoglobin Concent 32.7, Red Cell Distribution Width 13.2, Platelet Count 383, Neutrophils (%) (Auto) 69.6H, Lymphocytes (%) (Auto) 17.1L, Monocytes (%) (Auto) 11.5H, Eosinophils (%) (Auto) 0.9, Basophils (%) (Auto) 0.5, Neutrophils # (Auto) 7.5, Lymphocytes # (Auto) 1.8, Monocytes # (Auto) 1.2H, Eosinophils # (Auto) 0.1, Basophils # (Auto) 0.1, Nucleated Red Blood Cells % (auto) 0.0, Anion Gap 6L, Glomerular Filtration Rate > 60.0, Blood Urea Nitrogen 10, Creatinine 0.56, Sodium Level 133L, Potassium Level 4.2, Chloride Level 98, Carbon Dioxide Level 29, Calcium Level 10.6H, Phosphorus Level 3.3, Magnesium Level 1.9 CBC/BMP Laboratory Tests 02/28/19 06:14 Red Blood Count 4.39, Mean Corpuscular Volume 89.7, Mean Corpuscular Hemoglobin 29.4, Mean Corpuscular Hemoglobin Concent 32.7, Red Cell Distribution Width 13.2, Neutrophils (%) (Auto) 69.6 H, Lymphocytes (%) (Auto) 17.1 L, Monocytes (%) (Auto) 11.5 H, Eosinophils (%) (Auto) 0.9, Basophils (%) (Auto) 0.5, Neutrophils # (Auto) 7.5, Lymphocytes # (Auto) 1.8, Monocytes # (Auto) 1.2 H, Eosinophils # (Auto) 0.1, Basophils # (Auto) 0.1, Calcium Level 10.6 H Discharge Medications Scheduled Apixaban (Eliquis) 5 Mg Tab, 5 MG PO BID, (Reported) Atenolol (Atenolol) 50 Mg Tab, 50 MG PO BID, (Reported) Calcium Citrate/Vitamin D3 (Citracal-Vit D3 200 mg-250 Tab) 1 Each Tablet, 1 TAB PO BID, (Reported) Cyanocobalamin (Vitamin B-12) (Vitamin B-12) 1,000 Mcg Tablet, 1,000 MCG PO BID, (Reported) Digoxin (Digoxin) 125 Mcg Tablet, 0.0625 MG PO DAILY Furosemide (Furosemide) 20 Mg Tablet, 10 MG PO BID@09,17 Lysine HCl (l-Lysine) 500 Mg Tablet, 1 TAB PO DAILY, (Reported) Magnesium Oxide (Magnesium) 250 Mg Tab, 500 MG PO BID, (Reported) Metformin HCl (Metformin HCl) 1,000 Mg Tab, 1,000 MG PO BID, (Reported) Multivit-Min/FA/Lycopen/Lutein (Centrum Silver Tablet) 1 Each Tablet, 1 TAB PO DAILY, (Reported) Oxycodone HCl (Oxycodone HCl ER) 10 Mg Tab.er.12h, 10 MG PO BID, (Reported) Ranitidine HCl (Ranitidine HCl) 150 Mg Tablet, 1 TAB PO BID, (Reported) Rosuvastatin Calcium (Rosuvastatin Calcium) 5 Mg Tablet, 5 MG PO QHS, (Reported) Sennosides/Docusate Sodium (Senna Plus Tablet) 1 Each Tablet, 1 TAB PO BID Sodium Chloride (Sodium Chloride) 1 Gm Tablet, 1 GM PO BID Scheduled PRN Acetaminophen (Acetaminophen) 500 Mg Tablet, 1,000 MG PO Q6H PRN for PAIN, (Reported) Oxycodone HCl (Oxycodone HCl) 5 Mg Tablet, 5 MG PO Q6H PRN for PAIN, (Reported) Allergies Coded Allergies: TAPE (Verified Allergy, Unknown, 11/30/05) SHERIF JUDGE MD February 28, 2019 11:40
[2019-03-02 00:14] LABS: PTH RELATED PEPTIDE < 2.0 pmol/L (.); VITAMIN D 1,25 DIHYDROXY 32.9 pg/mL (19.9-79.3)
== END 2019-02-28 15:03 | disposition home health service (06) | DRG 644 ==
LOC: M ED 11:25 → M ED INP 15:09 → M MSPAV 17:27 → M ICU 02-24 00:15 → M MSPAV 02-24 09:51
PROVIDERS: ADMIT Internal Medicine; ATTEND Internal Medicine
DX: E22.2 Syndrome of inappropriate secretion of antidiuretic hormone (principal); C34.32 Malignant neoplasm of lower lobe, left bronchus or lung; C78.7 Secondary malignant neoplasm of liver and intrahepatic bile duct; I48.2 Chronic atrial fibrillation; I10 Essential (primary) hypertension; E11.9 Type 2 diabetes mellitus without complications; E83.42 Hypomagnesemia; E83.52 Hypercalcemia; R41.0 Disorientation, unspecified; K21.9 Gastro-esophageal reflux disease without esophagitis; Z66 Do not resuscitate; E07.81 Sick-euthyroid syndrome; E78.5 Hyperlipidemia, unspecified; Z85.43 Personal history of malignant neoplasm of ovary; Z85.820 Personal history of malignant melanoma of skin; Z79.01 Long term (current) use of anticoagulants; Z79.899 Other long term (current) drug therapy; Z90.2 Acquired absence of lung [part of]; Z79.891 Long term (current) use of opiate analgesic; Z90.710 Acquired absence of both cervix and uterus; Z90.722 Acquired absence of ovaries, bilateral; Z90.49 Acquired absence of other specified parts of digestive tract; Z87.891 Personal history of nicotine dependence; Z79.84 Long term (current) use of oral hypoglycemic drugs; T40.2X5A Adverse effect of other opioids, initial encounter

== ENCOUNTER → 2019-03-07 | Outpatient (REF) | payer MEDICARE, BC ==
[~2019-03-07] MED LIST changes: +ACET-683 PO; +CENT1TAB PO; +CITRTAB10 PO; +DIGO0.12 PO; +FOLTTAB9 PO; +FURO20TA2 PO; +L-LY500T9 PO; +META28.32 PO; +OXYC-403 PO; +OXYC-517 PO; +OXYC15TA76 PO; +RANI150T14 PO; +ROSU5TAB4 PO; +SENN-52 PO; +SODI1TAB6 PO; +VITA100014 PO
== END ==
LOC: M LAB REF 17:36
PROVIDERS: ATTEND Internal Medicine
DX: I48.0 Paroxysmal atrial fibrillation (principal)

== ENCOUNTER 2019-03-18 10:55 | Inpatient (IN) | payer MEDICARE, BC ==
[~2019-03-18] VITALS: Ht 154.9 cm; Wt 69.1 kg
--- NOTE | 2019-03-18 12:12 | REP ---
Portable chest, 11:43 a.m., single AP view, patient sitting: Comparison is the most recent prior study which is a chest CT dated 12/05/2016. The patient has a history of ovarian carcinoma. There is almost complete opacification of the left hemithorax and elevation of the left hemidiaphragm as changes from the comparison study. This could represent a large left pleural effusion or collapse of the left lung. Consider chest CT for further evaluation. There is a right IJ [id number] catheter with the tip at the confluence of the superior vena cava and right atrium. The right lung is clear. Cardiac size cannot be assessed. Impression: Complete opacification of the left hemithorax and elevation of the left hemidiaphragm. This could represent collapse of the left lung, large left pleural effusion or combination. Right-sided IJ central venous catheter. Right lung is clear. Electronically Signed by Robert Mari MD 03/18/2019 12:03 P
[2019-03-18 12:20] LABS: BASO # 0.1 10^3/uL (0.0-0.2); BASO % 0.4 % (0.0-1.0); EOS % 0.2 % (0.0-3.0); HEMATOCRIT 39.7 % (36.0-47.0); HEMOGLOBIN 12.9 g/dl (12.0-15.5); LYMPH # 1.6 10^3/uL (1.5-4.5); LYMPH % 9.6 % (24.0-44.0); MEAN CORPUSCULAR HEMOGLOBIN 28.5 pg (27.0-33.0); MEAN CORPUSCULAR HGB CONC 32.5 g/dl (32.0-36.5); MEAN CORPUSCULAR VOLUME 87.8 fl (80.0-96.0); MONO # 1.5 10^3/uL (0.0-0.8); MONO % 8.8 % (0.0-5.0); NEUTROPHILS # 13.6 10^3/uL (1.8-7.7); NEUTROPHILS % 80.4 % (36.0-66.0); PLATELET COUNT, AUTOMATED 417 10^3/uL (150-450); RED BLOOD COUNT 4.52 10^6/uL (4.00-5.40); WHITE BLOOD COUNT 16.9 10^3/uL (4.0-10.0)
[2019-03-18 12:45] LABS: ALBUMIN 2.5 GM/DL (3.2-5.2); ALT/SGPT 17 U/L (12-78); BILIRUBIN,DIRECT 0.4 MG/DL (0.0-0.2); BILIRUBIN,TOTAL 0.9 MG/DL (0.2-1.0); CK-MB VALUE MASS < 1.0 NG/ML (<3.6); CPK CREATINE PHOSPHOKINASE 32 U/L (26-192); MB/CK RELATIVE INDEX 3.12 (< OR =4); TOTAL PROTEIN 6.8 GM/DL (6.4-8.2); TROPONIN I < 0.02 NG/ML (< 0.10)
[2019-03-18] MEDS ORDERED: MORPHINE 2 MG/ML 1ML SYRINGE (J2270) IV ONE ×2 (13:15→14:45)
[2019-03-18 13:35] LABS: BLOOD UREA NITROGEN 10 MG/DL (7-18); CALCIUM LEVEL 9.7 MG/DL (8.8-10.2); CARBON DIOXIDE LEVEL 29 MEQ/L (21-32); CHLORIDE LEVEL 93 MEQ/L (98-107); CREATININE FOR GFR 0.62 MG/DL (0.55-1.30); FREE T4 1.11 NG/DL (0.76-1.46); GLOMERULAR FILTRATION RATE > 60.0 (>39); GLUCOSE, FASTING 149 MG/DL (70-100); LIPASE 35 U/L (73-393); NT-PRO BNP 1796 PG/ML (<450); POTASSIUM SERUM 4.2 MEQ/L (3.5-5.1); SODIUM LEVEL 131 MEQ/L (136-145)
--- NOTE | 2019-03-18 15:11 | REP ---
CT of the chest without IV contrast: Comparison is the portable chest performed earlier today in this patient with known ovarian carcinoma. There is a comparison chest CT dated 06/07/2017. There is a large mass obscuring almost the entire left hemithorax and there is a pleural effusion at t the lateral. medial and inferior margins of this mass. The mass extends medially into the left hilus and into the mediastinum. There is a pericardial effusion measuring up to 16 mm in depth along the left lateral margin of the heart. There are enlarged mediastinal nodes. There are multiple lung nodules bilaterally. There is grade 1 compression deformity of the approximate to T6 vertebral body superior endplate with a nondisplaced fracture of the superior posterior margin of this vertebral body. This is unchanged from 06/07/2017. There is a 4.5 cm soft tissue mass in the upper abdomen anterolaterally on the left. Impression: Large soft tissue mass and pleural effusion occupying the left hemithorax as described. The mass extends into the left hilus and into the mediastinum. The left pleural effusion. Mediastinal lymph node enlargement. Pericardial effusion. Bilateral lung nodules. Chronic compression and fracture of the the T6 vertebral body. Electronically Signed by Robert Mari MD 03/18/2019 03:03 P
[2019-03-18] MEDS ORDERED: DIGO0.12 PO (15:26)
[2019-03-18] MEDS ORDERED: SODI1TAB12 PO (15:26)
[2019-03-18] MEDS ORDERED: FURO20TA2 PO (15:26)
[2019-03-18] MEDS ORDERED: POTA1TAB14 PO (15:26)
[2019-03-18] MEDS ORDERED: SENN-50 PO (15:26)
[2019-03-18] MEDS ORDERED: ONDANSETRON 4MG/2ML VIAL (J2405) IV PRN (16:00)
[2019-03-18] MEDS ORDERED: ACETAMINOPHEN TAB 650MG DOSE (2X325MG) PO PRN (16:00)
[2019-03-18] MEDS ORDERED: ATROPINE SULFATE 1% OP SOLN 2 ML BTL SL PRN (16:00)
[2019-03-18] MEDS ORDERED: SCOPOLAMINE 1MG TRANSDERMAL PATCH TOP PRN (16:00)
[2019-03-18] MEDS ORDERED: FLEET ENEMA PR PRN (16:00)
[2019-03-18 17:06] VITALS: BP 110/62
--- NOTE | 2019-03-18 17:43 | HPEPDOC ---
[facility] Medical History & Physical Date of Admission Mar 18, 2019 Date of Service: Mar 18, 2019 History and Physical DATE OF ADMISSION: 03/18/2019 Primary Care Physician: Nathalie Wadsworth Medical oncologist in [place]: Dr. Padron [phone]. Wallpaper Embosser Helper: Dr. Loco Web Knitter: Dr. Enrique Inpatient Residential Green Building Designer: Thoracic Surgeon: Dr. Regan Montana CHIEF COMPLAINT: Lower extremity edema and shortness of breath. HISTORY OF THE PRESENT ILLNESS: 73-year-old DO NOT RESUSCITATE, DO NOT INTUBATE female with a history of ovarian cancer, status post chemotherapy in 2010, melanoma resection in 2011 and adenocarcinoma of the lung diagnosed September 2018, status post partial lobectomy, hypertension, diabetes, atrial fibrillation - on chronic anticoagulation, followed by Dr. Enrique, reflux disease, multiple hernias with repair in , large bowel resection in 2010 with a hysterectomy and bilateral salpingo-oophorectomy and left lower lobectomy, presents to the emergency room with a 1-week history of increasing shortness of breath and lower extremity edema. Despite lower extremity edema, the patient has had a 12-pound weight loss in the past week, usually weighs 152 pounds, with exertional dyspnea initially but currently dyspnea at rest. The patient has not been eating or drinking at home, has been kept on 1-1/2 liter fluid restriction by machine wedger who has been following for the hyponatremia. Recently the patient's Lasix had been increased. Despite this, there has been no difference in the lower extremity edema. She has had a cough with clear sputum, which started yesterday without fever or chills. Sodium chloride was given usually at 1 gram but has been decreased to 500 mg by nephrology. She has been taken off the calcium pills as well. Last visit to cardiology was before her September lobectomy at which point she had a stress test, which appeared to be stable. Since then, the patient has had no other issues until about a week ago when shortness of breath started to occur. Patient lives alone, has two sisters in the area and one son. There are two children, one from [place] and the other from [place], that are currently visiting, but will be heading back to their respective residences. She otherwise will have no healthcare at home. She denies any chest pain, pressure or tightness, lightheadedness or dizziness. Shortness of breath is worsened when she ambulates and has since had oxygen at home since her previous lobectomy. She currently has no prior history of coronary artery disease, myocardial infarction (AR), or congestive heart failure. Chest x-ray showed possible pleural effusion, complete opacification of the left lung. CT chest, however, read by Dr. Mari shows a large mass obscuring the entire left hemithorax with pleural effusion at the medial inferior margins, as well as extension of the mass in the left hilar and mediastinum, pericardial effusion measures up to 16 mm along the left lateral margin with enlarged mediastinal nodes. There is a grade 1 compression deformity at T6 with a nondisplaced fracture at the superior posterior margin of that vertebral body, which remains unchanged. There is a 4.5 cm soft tissue mass in the upper abdomen that is also new. Patient's medical oncologist is Dr. Padron in [place]. After discussion with her family, she has decided to remain in [place] to be evaluated by cardiothoracic surgeon, Dr. Montana, to be managed as such. Per radiology, due to significant pleural effusion, a CT-guided biopsy will be somewhat difficult. Knowing that she has stage IV metastatic cancer, radiology strongly encouraged further discussion with Dr. Padron before proceeding with a CT-guided biopsy. At this time, the left upper quadrant abdominal peritoneal mass is much more accessible and would be easier to biopsy if concerns for metastatic lesions. She has multiple lung nodules as well as significant mediastinal lymphadenopathy, which is consistent most likely with recurrence of the lung cancer with metastatic lesions. PAST MEDICAL HISTORY: Ovarian cancer status post chemotherapy. Melanoma status post resection in 2011. Adenocarcinoma (adeno CA) of the lung diagnosed September 2018 with left lower lobe lobectomy. Hypertension. Diabetes. Hyperlipidemia. Melanoma. Atrial fibrillation. Reflux disease. PAST SURGICAL HISTORY: Appendectomy. Tonsillectomy. Hernia repair in 1979. Cholecystectomy in 1989. Multiple hernia surgeries in the past. Hysterectomy. Bilateral salpingo-oophorectomy. Large bowel resection in 2010. Left lower lobectomy at [facility] September 04, 2018. ALLERGIES: To TAPE. HOME MEDICATIONS: - acetaminophen 1 gram every 6 hours as needed - Eliquis 5 mg twice a day - atenolol 50 mg twice a day - Lasix 10 mg twice a day - metformin 1 gram twice a day - multivitamin one tablet daily - vitamin B12 1 mg twice a day - digoxin 0.0625 mg daily - magnesium oxide 500 mg twice a day - oxycodone 5 mg every 6 hours as needed - oxycodone ER 10 mg twice a day - ranitidine one tablet by mouth twice a day - Senokot one tablet by mouth twice a day - sodium chloride 1 gram by mouth twice a day SOCIAL HISTORY: Currently lives alone. Former smoker. Denies drug use or alcohol use. The patient has a healthcare proxy, which is her son, Edgar. Phone number is [phone]. She has two sisters in the [place] area. Two daughters are visiting, one from [place] and the other is from [place]. REVIEW OF SYSTEMS: Generally, the patient has been feeling increasing shortness of breath, dyspnea on exertion, feeling weak, generalized fatigue. HEENT: Denies blurred vision, double vision. Denies any eye pain or eye discharge. ENT: No dysphagia, odynophagia. Patient denies any thirst. No ear pain, dizziness, vertigo, ear discharge. Cardiovascular: Complains of shortness of breath, increasing lower extremity edema. No prior history of coronary artery disease, AR or congestive heart failure. Respiratory: Dyspnea on exertion. Chronic home oxygen since lower lobectomy. Gastrointestinal (GI): Denies nausea, vomiting, diarrhea. Decreased in oral intake with a 12.5 -pound weight loss. History of gastroesophageal reflux disease. Genitourinary (): Denies dysuria, urgency, frequency. Has a history of chronic hyponatremia, most likely secondary to malignancy or syndrome of inappropriate secretion of antidiuretic hormone (SIADH), to be confirmed by machine wedger. Musculoskeletal: Denies any muscle aches or pains. Central Nervous System (TREASURY DIRECTOR): No prior history of strokes or seizures. No upper or lower extremity paresthesias. Denies any expressive aphasia, odynophagia, or dysphagia. Hematology/Oncology: History of multiple malignancies including lung cancer, ovarian cancer and melanoma. Endocrine: History of diabetes and hypertension. No history of hypothyroidism. Skin: Patient has no skin ulcers. All other systems are negative aside from positive findings from history of the present illness. PHYSICAL EXAMINATION: Temperature is 98.1, pulse 99, respiratory rate 18, blood pressure is 112/57, 100% on two liters nasal cannula. GENERAL: awake alert oriented x 4- 5word conversational dyspnea no cyanosis respiratory distress with use of accessory respiratory muscles 30degree head of bed elevation on a stretcher accompanied by 2 daughters and her sister. anicteric no jaundice no nasal flaring HEENT: PERRL EOMI no thyromegaly no cervical LAD moist mucus membranes no carotid bruits no stridor elevated jugular venous pressure. LUNGS: right clear to auscultation decreased breath sounds on the left, some dullness to percussion. no wheezing. HEART: S1S2 irregularly irregular ABD: soft nontender nondistended positve bowel sounds no rebound no guarding. well healed abdominal scars. EXT: (+) pitting edema no cyanosis no clubbing. LABORATORY DATA, IMAGING STUDIES, MICROBIOLOGY, EKG: PLS SEE BELOW ASSESSMENT AND PLAN: 73-year-old DO NOT RESUSCITATE, DO NOT INTUBATE female with a history of ovarian cancer, status post chemotherapy in 2010, melanoma resection in 2011 and adenocarcinoma of the lung diagnosed September 2018, status post partial lobectomy, hypertension, diabetes, atrial fibrillation - on chronic anticoagulation, followed by Dr. Enrique, reflux disease, multiple hernias with repair in , large bowel resection in 2010 with a hysterectomy and bilateral salpingo-oophorectomy and left lower lobectomy, presents to the emergency room with a 1-week history of increasing shortness of breath and lower extremity edema. Despite lower extremity edema, the patient has had a 12-pound weight loss in the past week, usually weighs 152 pounds, with exertional dyspnea initially but currently dyspnea at rest. The patient has not been eating or drinking at home, has been kept on 1-1/2 liter fluid restriction by machine wedger who has been following for the hyponatremia. Recently the patient's Lasix had been increased. Despite this, there has been no difference in the lower extremity edema. She has had a cough with clear sputum, which started yesterday without fever or chills. Sodium chloride was given usually at 1 gram but has been decreased to 500 mg by nephrology. She has been taken off the calcium pills as well. Last visit to cardiology was before her September lobectomy at which point she had a stress test, which appeared to be stable. Since then, the patient has had no other issues until about a week ago when shortness of breath started to occur. Patient lives alone, has two sisters in the area and one son. There are two children, one from [place] and the other from [place], that are currently visiting, but will be heading back to their respective residences. She otherwise will have no healthcare at home. She denies any chest pain, pressure or tightness, lightheadedness or dizziness. Shortness of breath is worsened when she ambulates and has since had oxygen at home since her previous lobectomy. She currently has no prior history of coronary artery disease, myocardial infarction (AR), or congestive heart failure. Chest x-ray showed possible pleural effusion, complete opacification of the left lung. CT chest, however, read by Dr. Mari shows a large mass obscuring the entire left hemithorax with pleural effusion at the medial inferior margins, as well as extension of the mass in the left hilar and mediastinum, pericardial effusion measures up to 16 mm along the left lateral margin with enlarged mediastinal nodes. There is a grade 1 compression deformity at T6 with a nondisplaced fracture at the superior posterior margin of that vertebral body, which remains unchanged. There is a 4.5 cm soft tissue mass in the upper abdomen that is also new. Patient's medical oncologist is Dr. Padron in [place]. After discussion with her family, she has decided to remain in [place] to be evaluated by cardiothoracic surgeon, Dr. Montana, to be managed as such. Per radiology, due to significant pleural effusion, a CT-guided biopsy will be somewhat difficult. Knowing that she has stage IV metastatic cancer, radiology strongly encouraged further discussion with Dr. Padron before proceeding with a CT-guided biopsy. At this time, the left upper quadrant abdominal peritoneal mass is much more accessible and would be easier to biopsy if concerns for metastatic lesions. She has multiple lung nodules as well as significant mediastinal lymphadenopathy, which is consistent most likely with recurrence of the lung cancer with metastatic lesions. Left Lung Mass -most likely recurrence from history of adenocarcinoma of the lung, with malignant pleural effusion and possible postobstructive pneumonia -Patient and family have decided after consultation with thoracic surgeon, Dr. Montana, to not pursue further evaluation with biopsy as the overall prognosis remains poor. -Per Radiologist, Dr. Mari, it would be very difficult to access the lung nodules in light of underlying pleural effusions with possible complications of infection, pneumothorax and bleeding, making palliative care a more viable option. -Therefore, CT-guided biopsy of the lung mass has been discontinued. -PFS/Hospice have been consulted Acute on Chronic hypoxic respiratory failure -secondary to llarge left hilario mass with complete opacification of the lung. most likely from recurrent lung ca. -pt has been on supplemental oxygen since 09/04/2018 LLL partial lobectomy. -Patient and family have decided after consultation with thoracic surgeon, Dr. Montana, to not pursue further evaluation with biopsy as the overall prognosis remains poor. -Per Radiologist, Dr. Mari, it would be very difficult to access the lung nod ules in light of underlying pleural effusions with possible complications of infection, pneumothorax and bleeding, making palliative care a more viable option. -Therefore, CT-guided biopsy of the lung mass has been discontinued. -PFS/Hospice have been consulted -keep o2 sat>88% Left pleural effusion -most likely malignant from recurrent adenoca of the lung -Family requesting treatment with antibiotics if possiblity of postobstructive pneumonia. -trial of lasix for comfort. 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 -s/p hysterectomy oophorectomy -followed by Dr. Padron Melanoma status post resection in 2011. -followed by Dr. Padron, [facility] in [place] Adenocarcinoma (adeno CA) of the lung diagnosed September 2018 with left lower lobe lobectomy. -with recurrence as seen on repeat CT chest with multiple pulmonary nodules and pleural effusion -sheet manufacturing supervisor. hospice consulted. DNR,DNI Hypertension. -PRN pain meds, CARE TEAM COORDINATOR SCHEDULER Diabetes. -regular diet since pt is CARE TEAM COORDINATOR SCHEDULER and losing weight. Hyperlipidemia. -regular diet. CARE TEAM COORDINATOR SCHEDULER Atrial fibrillation. -CARE TEAM COORDINATOR SCHEDULER. hospice consulted. discontinued anticoagulation -PRN hospice meds. code status: DNR DNI Diet: regular disposition: pfs consulted for hospice. Vital Signs Vital Signs Date Time Temp Pulse Resp B/P (MAP) Pulse Ox O2 Delivery O2 Flow Rate FiO2 03/18/19 15:50 16 03/18/19 15:45 99 103/51 (68) 99 03/18/19 11:40 Nasal Cannula 3.0 03/18/19 10:56 98.1 Laboratory Data Labs 24H Laboratory Tests 2 03/18/19 11:08: Immature Granulocyte % (Auto) 0.6, White Blood Count 16.9H, Red Blood Count 4.52, Hemoglobin 12.9, Hematocrit 39.7, Mean Corpuscular Volume 87.8, Mean Corpuscular Hemoglobin 28.5, Mean Corpuscular Hemoglobin Concent 32.5, Red Cell Distribution Width 14.6H, Platelet Count 417, Neutrophils (%) (Auto) 80.4H, Lymphocytes (%) (Auto) 9.6L, Monocytes (%) (Auto) 8.8H, Eosinophils (%) (Auto) 0.2, Basophils (%) (Auto) 0.4, Neutrophils # (Auto) 13.6H, Lymphocytes # (Auto) 1.6, Monocytes # (Auto) 1.5H, Eosinophils # (Auto) 0.0, Basophils # (Auto) 0.1, Nucleated Red Blood Cells % (auto) 0.0 03/18/19 11:54: Anion Gap 9, Glomerular Filtration Rate > 60.0, Calcium Level 9.7, Aspartate Amino Transf (AST/SGOT) 23, Alanine Aminotransferase (ALT/SGPT) 17, Alkaline Phosphatase 101, Total Bilirubin 0.9, Direct Bilirubin 0.4H, Total Creatine Kinase 32, Creatine Kinase MB < 1.0, Creatine Kinase MB Relative Index 3.12, Troponin I < 0.02, HX-Rpi-A-Type Natriuretic Peptide 1796H, Total Protein 6.8, Albumin 2.5L, Albumin/Globulin Ratio 0.58L, Lipase 35L, Thyroid Stimulating Hormone (TSH) 4.550H, Free Thyroxine 1.11 CBC/BMP Laboratory Tests 03/18/19 11:08 Red Blood Count 4.52, Mean Corpuscular Volume 87.8, Mean Corpuscular Hemoglobin 28.5, Mean Corpuscular Hemoglobin Concent 32.5, Red Cell Distribution Width 14.6 H, Neutrophils (%) (Auto) 80.4 H, Lymphocytes (%) (Auto) 9.6 L, Monocytes (%) (Auto) 8.8 H, Eosinophils (%) (Auto) 0.2, Basophils (%) (Auto) 0.4, Neutrophils # (Auto) 13.6 H, Lymphocytes # (Auto) 1.6, Monocytes # (Auto) 1.5 H, Eosinophils # (Auto) 0.0, Basophils # (Auto) 0.1 03/18/19 11:54 Home Medications Scheduled Apixaban (Eliquis) 5 Mg Tab, 5 MG PO BID Atenolol (Atenolol) 50 Mg Tab, 50 MG PO BID Cyanocobalamin (Vitamin B-12) (Vitamin B-12) 1,000 Mcg Tablet, 1,000 MCG PO DAILY Digoxin (Digoxin) 125 Mcg Tablet, 62.5 MCG PO DAILY Furosemide (Furosemide) 20 Mg Tablet, 20 MG PO BID Magnesium Oxide (Magnesium) 250 Mg Tab, 500 MG PO BID Metformin HCl (Metformin HCl) 1,000 Mg Tab, 1,000 MG PO BID Multivit-Min/FA/Lycopen/Lutein (Centrum Silver Tablet) 1 Each Tablet, 1 TAB PO DAILY Oxycodone HCl (Oxycodone HCl ER) 10 Mg Tab.er.12h, 10 MG PO BID Potassium Chloride (Potassium Chloride) 20 Meq Tablet.er, 20 MEQ PO DAILY NEW MEDICATION OF 03/18/19 - HAS NOT STARTED Ranitidine HCl (Ranitidine HCl) 150 Mg Tablet, 1 TAB PO BID Sodium Chloride (Sodium Chloride) 1 Gm Tablet, 1 GM PO BID Scheduled PRN Acetaminophen (Acetaminophen) 500 Mg Tablet, 1,000 MG PO Q6H PRN for PAIN Oxycodone HCl (Oxycodone HCl) 5 Mg Tablet, 5 MG PO Q6H PRN for PAIN Sennosides/Docusate Sodium (Senna Plus Tablet) 1 Each Tablet, 1 TAB PO DAILY PRN for CONSTIPATION Allergies Coded Allergies: TAPE (Verified Allergy, Unknown, 11/30/05) A-FIB/CHADSVASC A-FIB History Current/History of A-Fib/PAF?: Yes Current PO Anticoag Therapy: No Treatment Treatment ordered: NONE Reason Anticoagulant not given: Other Other reason anticoagulant not: COMFORT MEASURES ONLY . DNR DNI. DARRELL WADE MD Mar 18, 2019 17:08
[2019-03-18] MEDS: MORPHINE 10MG/0.5ML ORAL CONCENTRATE SOLUTION U/D SL PRN ×3 (18:03→23:35)
[2019-03-18] MEDS: LevoFLOXacin 750 MG TABLET PO SCH (18:09)
[2019-03-19] MEDS: MORPHINE 10MG/0.5ML ORAL CONCENTRATE SOLUTION U/D SL PRN ×7 (02:18→22:59)
[2019-03-19] MEDS: LORazepam 2 MG/ML VIAL (J2060) IV PRN ×4 (03:09→19:55)
--- NOTE | 2019-03-19 05:51 | ECGEPIP ---
[facility] - ED Test Date: 2019-03-18 Pat Name: SKYLER LEAL Department: Room: [place] [address] Gender: Female Transport Pilot: osman : 1945 Requested By: Usha Justin Order Number: [id number] Reading MD: Chas Salas Measurements Intervals [place] Rate: 90 P: ID: [id number] QRS: 39 QRSD: 74 T: 229 QT: 309 QTc: 378 Interpretive Statements ATRIAL FIBRILLATIONST DEVIATION AND MODERATE T-WAVE ABNORMALITY, CONSIDER ANTEROLATERAL ISCHEMIA ST DEVIATION AND MODERATE T-WAVE ABNORMALITY, CONSIDER INFERIOR ISCHEMIA Electronically Signed on 03-19-2019 5:50:54 EDT by Chas Salas
[2019-03-19] MEDS: LevoFLOXacin 750 MG TABLET PO SCH (06:03)
[2019-03-19] MEDS ORDERED: SODIUM CHLORIDE 0.9% INJ 10 ML SYR IV PRN (11:45)
--- NOTE | 2019-03-19 12:59 | CR ---
DATE OF CONSULTATION: 03/18/2019 Patient is seen at the request of Dr. Usha Alvarado in the emergency room and the hospitalist service for shortness of breath. HISTORY OF PRESENT ILLNESS: The patient is a 73-year-old white female who is status post some type of a left lung resection in September of last year for primary lung carcinoma. She had a history of prior ovarian cancer where she underwent hysterectomy and oophorectomy and chemotherapy in 2010. She is also status post a melanoma resection in 2011. She has undergone at least adjuvant chemotherapy and immunotherapy and now is presently on Keytruda for her lung cancer. High expression of PD-L1 sounds familiar to the family. Although the family states that she had a wedge resection rather than a lobectomy done robotically. In the last week, she has become more short of breath. Her medical care has been done mostly in [place]. She was admitted at this hospital on February 22, 2019 with hyponatremia. At that time, she was not complaining of shortness of breath but rather left upper quadrant abdominal pain. She has a metastatic tumor in her left upper quadrant and the family states that it has metastasized to her liver also. Approximately 1 week ago, she became increasingly short of breath over a period of a few days with increasing leg edema. Her leg edema was noted on her last admission for hyponatremia. She had been started on Lasix which was recently increased and also was encouraged of a 1500 mL fluid restriction. She complains of a cough in the last few days bringing up white to yellow sputum. She does complain also of left back pain, which hurts when she coughs. The back pain is a dull aching pain. That also has occurred within the last week. She denies fever, chills, or sweats as does the family. She states that she has lost considerable amount of weight of approximately 10 pounds. The shortness of breath is such that she has trouble getting around her house just going to the bathroom. She was on oxygen after her surgical resection. When Dr. Guerra evaluated her last August, she had an FEV1 of 2.07, which is 100% predicted. Full pulmonary functions are not listed and I do not know what her diffusion capacity was. Review of her CT scan done in June of 2018 revealed 1.3 cm lesion in the left upper lobe. The study at that point, was done with contrast and she had some minimal lymphadenopathy in the paratracheal. There looked to be a hilar loop noted additionally. As her adjuvant chemotherapy has been done at [place], I do not have the details of the agents used, although she is now presently on Keytruda. PAST MEDICAL HISTORY: Ovarian cancer status post chemotherapy as noted above. Melanoma status post resection, as noted above. Adenocarcinoma of the lung, as noted above. Hypertension. Diabetes. Hyperlipidemia. Atrial fibrillation. Esophageal reflux disease. PAST SURGICAL HISTORY: Transabdominal hysterectomy/bilateral salpingo-oophorectomy (NASEEM/BSO) for her ovarian cancer, as noted above. Superficial bladder carcinoma excised in 2013. Status post excision of melanoma in 2012. Multiple hernia surgeries and hernia repairs. Cholecystectomy in 1989. Status post panniculectomy in 2012. Large bowel resection in 2010. ALLERGIES: Tape. PHENERGAN. HOME MEDICATIONS: - Tylenol 1 gram every 6 hours as needed pain. - Eliquis 5 mg daily - atenolol 50 mg twice a day - Lasix 10 mg twice a day - Metformin 1 grams twice a day - multivitamins 1 tablet daily - vitamin B12 one tablet daily - digoxin 0.0625 mg daily - magnesium oxide 500 mg twice a day - oxycodone 5 mg every 6 hours pain - oxycodone emergency room 10 mg twice a day - ranitidine 150 mg twice a day - sodium chloride tablets 1 gram twice a day HABITS: Former smoker, one pack per day from the age of 16 to 32, giving her a 16-pack year history of smoking. No alcohol use and no illicit drugs. TRAVEL HISTORY: None obtained. EXPOSURES: No dogs, cats, birds at home. 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 No exposure to asbestos. FAMILY HISTORY: Mother at age 77, of bladder and renal cancer. Father at age 80 of cancer. Brother at 63 from heart disease. She has three children without significant medical problems. REVIEW OF SYSTEMS: CONSTITUTIONAL: Fatigue without fevers, chills, or sweats with weight loss. EYES: With out amaurosis fugax, without diplopia. NOSE: Without epistaxis. MOUTH: Has false teeth. PULMONARY: See HPI. CARDIAC: Without prior myocardial infarction, however does have orthopnea and sleeps with numerous pillows behind her and also in a recliner. GASTROINTESTINAL (GI): Without nausea, vomiting, diarrhea but with decreased appetite and with left upper quadrant pain. GENITOURINARY (): Without dysuria, hematuria, or prior renal stones. ENDOCRINE: With diabetes and hypertension. No history of hypothyroid. NEUROLOGIC: Without prior history of paresthesias, paralysis or seizures. No strokes. PSYCHIATRIC: Without pathological anxieties, depression or psychoses. PHYSICAL EXAMINATION: A well developed, weak female in acute distress with shortness of breath who cannot complete sentences. She states that she "does not have long to live". VITAL SIGNS: Temperature 97.9, heart rate is 96 with a regular rate and rhythm, respiratory rate 16-20 without the use of accessory muscles who is 99% saturated on 3 liters nasal cannula and her blood pressure is 111/68. EYES: Pupils equal, round, and reactive to light and accommodation. Extraocular muscles intact. Sclerae nonicteric. NOSE: Without deformity. MOUTH: [place] and moist. Lips and commissure without lesions. There is no thrush. HEAD: Normocephalic. NECK: Supple. There is no jugular venous distention. Trachea is midline. There is a node in the left anterior triangle medial to the sternocleidomastoid muscle. This is somewhat tender. She has 2+ carotid upstrokes. No thyromegaly. No other lymphadenopathy. LUNGS: Show markedly decreased breath sounds in the left side with a dull percussion to all of the lung on the left side. The right lung shows some crackles and rales, not all would clear with coughing. Percussion note is full to diaphragm on the right. CARDIAC: Exam is with murmurs, clicks, gallops or rubs. I cannot feel her point of maximum impulse (PMI). S1 and S2 are normal. ABDOMEN: Shows tenderness in the left upper quadrant. Bowel sounds are positive. I hear no bruits and there is no costovertebral angle (CVA) tenderness. EXTREMITIES: Show 4+ pretibial edema. No calf tenderness. No differential swelling of the upper extremities. SKIN: Warm, dry and perfused without cyanosis or mottling including that of the nail beds and knees. NEURO: II through XII intact with gross motor and gross sensation intact. Gait is not tested. PSYCHIATRIC: Showed her to be awake, alert and oriented times three with appropriate and affect and conversational. Her white count is 16.9 with hemoglobin and hematocrit 12.9 and 39.7 and a platelet count 417. Differential shows 80% neutrophils, 9% lymphocytes, 8% monocytes. There are no immature forms or toxic granulations. Her electrolytes show sodium 131, with a potassium of 4.2. BUN and creatinine are 10 and 0.62 with a glucose of 149 and a calcium of 9.7 and corresponding albumin of 2.5. Lipase is 35. AST and ALT are normal. TSH is high at 4.55. Her chest x-ray done portably shows almost complete opacification of the left hemithorax. There is no lateral film. The CT done without contrast today in the emergency room shows a very large mediastinal mass which is completely obstructing what I think is the left upper lobe bronchus. The left upper bronchus looks to be calcified with a remnant thereof. This confirms the families impression that she underwent a wedge resection rather than a lobectomy. She has multiple lung masses on the right side. There is a small to moderate pericardial effusion. There is a left upper quadrant abdominal wall mass, which may be omental based. She has numerous liver lucencies. IMPRESSION: 1. Likely metastatic most likely lung carcinoma, although it could be ovarian. 2. Presently on Kaytruda as immunotherapy. 3. Diabetes. 4. Hypertension. 5. Probable hypothyroidism. 6. History of ovarian cancer. 7. History of melanoma. 8. Atrial fibrillation. 9. Gastroesophageal reflux disease. PLAN AND DISCUSSION: I have had a long discussion with her and her family, which consists of a sister and two daughters regarding the likelihood of any meaningful long-term survival. She was to undergo one more treatment with Keytruda with a followup scan for re-evaluation. It is clear that she has a large tumor load, which is widely metastatic. I therefore, had a discussion of therapeutic care versus comfort care and hospice. Mrs. Hand is quite open, and in fact almost enthusiastic about going on to hospice as she realizes that the cancer really has overtaken her. I have therefore, spoken with her admitting physician, Dr. Casas and she is going to be made comfort measures and a hospice consult will be obtained. There are issues with regards to doing hospice at home as she has only a son here to take care of her. Her daughters live out- of-state and are going to return back home soon. I will obtain records from [facility] to confirm the exact type of operation that she did undergo. I have asked the hospitalist to cancel the echocardiogram as I would not entertain taking her to the operating room or a window or a pericardiocentesis.
--- NOTE | 2019-03-19 19:30 | IPNPDOC ---
Subjective Date Seen The patient was seen on 03/19/19. Subjective Chief Complaint/HPI The patient is short of breath. I had a long conversation with the patient and family. She is comfort care, MOSTL form was finished. The patient wishes "please let me go." General: Reports: Fatigue, Malaise Constitutional: Reports: Malaise Eyes: Denies: Pain, Vision change, Conjunctivae inflammation, Eyelid inflammation, Redness, Other ENT: Denies: Head Aches, Ear Pain, Dysphagia, Sinus Congestion, Post Nasal Drip, Sore Throat, Epistaxis, Other Symptoms Skin: Denies: Rash, Lesions, Jaundice, Bruising, Itching, Dry, Breakdown, Nail Changes, Other Pulmonary: Reports: Dyspnea, Cough Cardiovascular: Denies: Chest Pain, Palpitations, Orthopnea, Paroxysmal Noc. Dyspnea, Edema, Lt Headedness, Other Symptoms Gastrointestinal: Denies: Nausea, Vomiting, Abdominal Pain, Diarrhea, Constipation, Melena, Hematochezia, Other Symptoms Genitourinary: Denies: Dysuria, Frequency, Incontinence, Hematuria, Retention, Other Symptoms Hematologic: Denies: Bruising, Bleeding Excessively, Petecchia, Purpura, Enlarged Lymph Nodes, Other Hematologic Endocrine: Denies: Polydipsia, Polyphagia, Polyuria, Heat Intolerance, Cold Intolerance, Other Endocrine Sx Musculoskeletal: Reports: Other Symptoms (edema) Neurological: Denies: Weakness, Numbness, Incoordination, Change in speech, Confusion, Seizures, Other Symptoms Psych: Denies: Mood Normal, Anxiety, Depression, Memory Issues, Thoughts of Self Harm, Anger, Thoughts of Harming Other, Other Psych Objective Physical Examination General Exam: Positive: Alert, Moderate Distress Eye Exam: Positive: Conjunctiva & lids normal ENT Exam: Positive: Atraumatic Neck Exam: Positive: Supple Chest Exam: Positive: Diminished (L lung sounds diminished) Heart Exam: Positive: Rate Normal Abdomen Exam: Positive: Normal bowel sounds Extremity Exam: Positive: Edema Skin Exam: Positive: Nl turgor and temperature Neuro Exam: Positive: Reflexes 2+ Psych Exam: Positive: Mood NL Assessment /Plan Assessment # Left Lung Mass, large mass with pleural effusion, acute on Chronic hypoxic respiratory failure - She has a history of lung adenocarcinoma s/p pembrolizumab. Likely disease progression, and she is ECOG 2-3. She will not be able to tolerate further treatment. - Per patient's wish, she is currently comfort care, DNR/DNI. MOLST form was signed by me today. The patient does not want antibiotics in case she has pneumonia or infection. - Hospice have been consulted. - Continue O2 treatment. # Pericardial Effusion - No intervention # Lower ext edema - Cr is wnl, will start lasix 20 BID PO. 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 - s/p hysterectomy oophorectomy - followed by Dr. Padron # Melanoma status post resection in 2011. -followed by Dr. Padron, [facility] in [place] # Diabetes. - Rregular diet since pt is [employer] and losing weight. # Hyperlipidemia. - Regular diet. [employer] # Atrial fibrillation. - Discontinued anticoagulation code status: DNR DNI, comfort care, MOLST form finished Plan/VTE VTE Prophylaxis Ordered?: No VS, I&O, 24H, Fishbone Vital Signs/I&O Vital Signs Date Time Temp Pulse Resp B/P (MAP) Pulse Ox O2 Delivery O2 Flow Rate FiO2 03/19/19 17:35 20 3.0 03/18/19 17:06 97.9 95 110/62 (78) 97 Nasal Cannula I&O- Last 24 Hours up to 6 AM 03/19/19 06:00 Intake Total 0 ml Balance 0 ml REYMUNDO HIGGINS MD Mar 19, 2019 19:30
[2019-03-19] MEDS: FUROSEMIDE 20 MG TAB PO SCH (19:46)
[2019-03-20] MEDS: LORazepam 2 MG/ML VIAL (J2060) IV PRN ×2 (05:50→12:40)
[2019-03-20] MEDS ORDERED: SODIUM CHLORIDE 0.9% INJ 10 ML SYR IV SCH (09:00)
[2019-03-20] MEDS: FUROSEMIDE 20 MG TAB PO SCH (09:00)
[2019-03-20] MEDS: MORPHINE 10MG/0.5ML ORAL CONCENTRATE SOLUTION U/D SL PRN (09:18)
[2019-03-20] MEDS ORDERED: DIGO0.12 PO (12:13)
[2019-03-20] MEDS ORDERED: MAGN250T7 PO (12:13)
[2019-03-20] MEDS ORDERED: ATIV1TAB10 PO (12:13)
[2019-03-20] MEDS ORDERED: ACET-683 PO (12:13)
[2019-03-20] MEDS ORDERED: OXYC-517 PO (12:13)
[2019-03-20] MEDS ORDERED: FURO20TA2 PO (12:13)
[2019-03-20] MEDS ORDERED: RANI150T14 PO (12:13)
[2019-03-20] MEDS ORDERED: SENN-50 PO (12:13)
[2019-03-20] MEDS ORDERED: ATRO1OPD PO (12:20)
[2019-03-20] MEDS ORDERED: MORP20SO PO (12:20)
--- NOTE | 2019-03-20 12:25 | DS.PDOC ---
Discharge Summary General Date of Admission Mar 18, 2019 at 14:38 Date of Discharge 03/20/2019 Discharge Summary 73-year-old DO NOT RESUSCITATE, DO NOT INTUBATE female with a history of ovarian cancer, status post chemotherapy in 2010, melanoma resection in 2011 and adenocarcinoma of the lung diagnosed September 2018, status post partial lobectomy, hypertension, diabetes, atrial fibrillation - on chronic ant icoagulation, followed by Dr. Enrique, reflux disease, multiple hernias with repair in , large bowel resection in 2010 with a hysterectomy and bilateral salpingo-oophorectomy and left lower lobectomy, presents to the emergency room with a 1-week history of increasing shortness of breath and lower extremity edema. Despite lower extremity edema, the patient has had a 12-pound weight loss in the past week, usually weighs 152 pounds, with exertional dyspnea initially but currently dyspnea at rest. The patient has not been eating or drinking at home, has been kept on 1-1/2 liter fluid restriction by senior sql server database developer who has been following for the hyponatremia. Recently the patient's Lasix had been increased. Despite this, there has been no difference in the lower extremity edema. She has had a cough with clear sputum, which started yesterday without fever or chills. Sodium chloride was given usually at 1 gram but has been decreased to 500 mg by nephrology. She has been taken off the calcium pills as well. Last visit to cardiology was before her September lobectomy at which point she had a stress test, which appeared to be stable. Since then, the patient has had no other issues until about a week ago when shortness of breath started to occur. Patient lives alone, has two sisters in the area and one son. There are two children, one from [place] and the other from [place], that are currentl y visiting, but will be heading back to their respective residences. She otherwise will have no healthcare at home. She denies any chest pain, pressure or tightness, lightheadedness or dizziness. Shortness of breath is worsened when she ambulates and has since had oxygen at home since her previous lobectomy. She currently has no prior history of coronary artery disease, myocardial infarction (PR), or congestive heart failure. Chest x-ray showed possible pleural effusion, complete opacification of the left lung. CT chest, however, read by Dr. Mari shows a large mass obscuring the entire left hemithorax with pleural effusion at the medial inferior margins, as well as extension of the mass in the left hilar and mediastinum, pericardial effusion measures up to 16 mm along the left lateral margin with enlarged mediastinal nodes. There is a grade 1 compression deformity at T6 with a nondisplaced fracture at the superior posterior margin of that vertebral body, which remains unchanged. There is a 4.5 cm soft tissue mass in the upper abdomen that is also new. Patient's medical oncologist is Dr. Padron in [place]. After discussion with her family, she has decided to remain in [place] to be evaluated by cardiothoracic surgeon, Dr. [place], to be managed as such. Per radiology, due to significant pleural effusion, a CT-guided biopsy will be somewhat difficult. Knowing that she has stage IV metastatic cancer, radiology strongly encouraged further discussion with Dr. Padron before proceeding with a CT-guided biopsy. At this time, the left upper quadrant abdominal peritoneal mass is much more accessible and would be easier to biopsy if concerns for metastatic lesions. She has multiple lung nodules as well as significant mediastinal lymphadenopathy, which is consistent most likely with recurrence of the lung cancer with metastatic lesions. The patient was found to have a left lung mass, large mass with pleural effusion, acute on Chronic hypoxic respiratory failure. She has a history of lung adenocarcinoma s/p pembrolizumab. Likely disease progression, and she is ECOG 2-3. She will not be able to tolerate further treatment. Per patient's wish, she is currently comfort care, DNR/DNI. MOLST form was signed by me today. The patient does not want antibiotics in case she has pneumonia or infection. Hospice have been consulted, and the patient will be transferred to hospice today. Continue O2 treatment. The patient will have roxanol and atropine drop to help breathing in hospice. She was found to have pericardial and pleural effusion, but no intervention is recommended at this point. For lower ext edema, continue lasix 20 BID for comfort. For Atrial fibrillation, anticoagulation is discontinued. Vital Signs/I&Os Vital Signs Date Time Temp Pulse Resp B/P (MAP) Pulse Ox O2 Delivery O2 Flow Rate FiO2 03/20/19 09:48 30 03/20/19 08:07 3.0 03/18/19 17:06 97.9 95 110/62 (78) 97 Nasal Cannula I&O- Last 24 Hours up to 6 AM 03/20/19 06:00 Intake Total 390 ml Output Total 0 ml Balance 390 ml Discharge Medications Scheduled Digoxin (Digoxin) 125 Mcg Tablet, 62.5 MCG PO DAILY Furosemide (Furosemide) 20 Mg Tablet, 20 MG PO BID Magnesium Oxide (Magnesium) 250 Mg Tab, 500 MG PO BID Ranitidine HCl (Ranitidine HCl) 150 Mg Tablet, 1 TAB PO BID Scheduled PRN Acetaminophen (Acetaminophen) 500 Mg Tablet, 1,000 MG PO Q6H PRN for PAIN Atropine Sulfate (Atropine Sulfate) 1% 2ML Drops, 1-2 DROP PO Q2H PRN for TERMINAL SECRETIONS Use sublingually if unable to swallow MDD = 36 drops Lorazepam (Ativan) 0.5 Mg Tablet, 0.5 MG PO BIDP PRN for anxiety Morphine Sulfate (Morphine Sulfate) 20 Mg/5 Ml Solution, 10 MG PO Q6H PRN for PAIN Sennosides/Docusate Sodium (Senna Plus Tablet) 1 Each Tablet, 1 TAB PO DAILY PRN for CONSTIPATION Allergies Coded Allergies: TAPE (Verified Allergy, Unknown, 11/30/05) REYMUNDO HIGGINS MD Mar 20, 2019 12:25
--- NOTE | 2019-03-21 10:31 | IPN ---
DATE: 03/19/2019 Mrs. Hand is up in a chair today. She is breathing a bit better although she is still considerably short of breath, even at rest at sitting. Hospice has been consulted but has not yet seen her. I learned today that her daughters and sister have gone back to their respective states only leaving her son locally. She is on comfort care measures only. Her vital signs show a respiratory rate of 16-20 and she is on 3 liters nasal cannula. No other vital signs are done. Her intake and output is also not completed. On physical examination, her left lung still shows absent breath sounds, and her right lung shows rhonchi, both inspiratory and expiratory throughout, which do not clear with coughing. Percussion note is dull over the left side. Abdomen is tender in the left upper quadrant. Her bowel sounds are positive. Cardiac exam is without murmurs, clicks, gallops or rubs. I cannot feel her PMI. Extremities show 4+ pretibial edema. There is no differential swelling of the upper extremities. Her skin is warm, dry and perfused, but quite thinned over her legs. There is no cyanosis of her nail beds and her knees. Neck is supple. There is no jugular venous distention (JVD). No subcutaneous emphysema. Trachea is midline. Mouth shows her mucous membranes to be pink and moist. Lips and commissures without lesions. No thrush. Eyes show her pupils to be equal, reactive. Extraocular motors are intact. Sclera nonicteric. Neuro shows II through XII grossly intact, along with gross motor and gross sensation intact. Gait is not tested. Psychiatric shows her to be awake, alert, and understands the prospects for her disease. She again tells me that she is not going to live more than two weeks. There were no laboratories done on her today. I did obtain the notes from [facility]. She underwent a robotic assisted wedge resection of her lingular lesion. The operation however is entitled segmentectomy and dictated by the fourth year resident. The pathological specimen is labeled as a wedge resection, however. All nodes were negative. Pathology of the lung tumor showed to be poorly differentiated adenocarcinoma. While there was no direct extension of the tumor into the lung parenchymal margin, lymphovascular involvement of the tumor was noted at the parenchymal margin. While she had, by TMN staging standards, a stage IA carcinoma, residual tumor at the margins in the lymphatics, prompted chemotherapy as she was PD-L1 predominant, immunotherapy with Keytruda. It is clear that this is a very aggressive tumor. She has multiple lung nodules on the other side additionally on her latest CT scan. She is prepared for hospice and the only question remaining is if she will go home with hospice or whether she will have to go to the hospice house. Hopefully her son will be available to attend to her during her last weeks at home rather than having to go to the hospice house.
== END 2019-03-20 13:35 | disposition hospice, inpatient (51) | DRG 180 ==
LOC: M ED 10:55 → M ED INP 14:38 → M MSPAV 17:19
PROVIDERS: ADMIT General Practice; ATTEND Internal Medicine
DX: C34.92 Malignant neoplasm of unspecified part of left bronchus or lung (principal); J96.21 Acute and chronic respiratory failure with hypoxia; J18.9 Pneumonia, unspecified organism; J91.0 Malignant pleural effusion; E22.2 Syndrome of inappropriate secretion of antidiuretic hormone; C78.7 Secondary malignant neoplasm of liver and intrahepatic bile duct; C78.6 Secondary malignant neoplasm of retroperitoneum and peritoneum; I31.3 Pericardial effusion (noninflammatory); I10 Essential (primary) hypertension; E78.5 Hyperlipidemia, unspecified; E11.9 Type 2 diabetes mellitus without complications; I48.91 Unspecified atrial fibrillation; K21.9 Gastro-esophageal reflux disease without esophagitis; Z51.5 Encounter for palliative care; Z66 Do not resuscitate; Z85.43 Personal history of malignant neoplasm of ovary; Z85.820 Personal history of malignant melanoma of skin; Z92.21 Personal history of antineoplastic chemotherapy; Z90.2 Acquired absence of lung [part of]; Z90.49 Acquired absence of other specified parts of digestive tract; Z90.711 Acquired absence of uterus with remaining cervical stump; Z79.01 Long term (current) use of anticoagulants; Z79.891 Long term (current) use of opiate analgesic; Z79.899 Other long term (current) drug therapy; Z87.891 Personal history of nicotine dependence; Z99.81 Dependence on supplemental oxygen; Z91.048 Other nonmedicinal substance allergy status